=== PATIENT | female | born 1985 | race Caucasian/White ===

== ENCOUNTER 2016-06-03 20:13 | Emergency (ER) | payer MEDICAID ==
[2016-06-03] MEDS ORDERED: NORMAL SALINE 1,000 ML IV ONE (21:54)
--- NOTE | 2016-06-03 21:55 | ERNOTE ---
ER Female HPI Stated Complaint: URINARY PROBLEM Presenting Symptoms: dysuria, other - flank pain Time Seen by Provider: 06/03/16 21:47 Source: patient Exam Limitations: no limitations Immunizations: IMMUNIZATION HX Immunizations Up to Date Yes History of Influenza Vaccine Yes Hx Pneumococcal Vaccination No Allergies/Adverse Reactions: Allergies ketorolac tromethamine [From Toradol] Allergy (Intermediate, Verified 06/03/16 20:38) Other tramadol Allergy (Intermediate, Verified 06/03/16 20:38) Other hydrocodone Allergy (Verified 06/03/16 20:38) Shaking, projectile vomiting, racing heart, shortness of breath hydrocodone bitartrate [From Vicodin] Allergy (Verified 06/03/16 20:38) Home Medications: HOME MEDICATIONS Venlafaxine HCl [Effexor Xr] 150 mg PO DAILY 12/13/15 [Last Taken Unknown] Ciprofloxacin HCl [Cipro] 500 mg PO BID #20 tab 02/24/16 [Last Taken Unknown] Ondansetron [Zofran Odt] 4 mg PO Q6H PRN #20 tab 02/24/16 [Last Taken Unknown] metroNIDAZOLE [Flagyl] 500 mg PO Q12H #14 tab 02/24/16 [Last Taken Unknown] oxyCODONE HCL/ACETAMINOPHEN [Percocet 5 MG/325 MG] 1 tab PO Q6H #25 tablet 02/23 [Last Taken Unknown] Sulfamethoxazole/Trimethoprim [Bactrim Ds] 1 tab PO BID #20 tab 06/04/16 [Last Taken Unknown] - History of Present Illness Narrative: Pt had onset of lower abdominal pain and flank pain that started 3 days ago and has worsened. today she has n/v and unable to hold anything down Timing: Present: getting worse Quality: Present: moderate, severe, aching Onset Location: Present: right flank, left flank Radiation: Present: none Activities at Onset: Present: none Prior Abdominal Problems: Present: none Review of Systems - Review of Systems Constitutional: Present: fever, chills, fatigue EYE: Present: no symptoms reported ENT: Present: no symptoms reported Respiratory: Absent: shortness of breath Cardiology: Absent: chest pain Gastrointestinal/Abdominal: Present: nausea, vomiting. Absent: diarrhea Genitourinary: Present: pain, dysuria, decreased urinary output Musculoskeletal: Present: back pain Skin: Absent: rash Neurological: Present: no symptoms reported Endocrine: Present: no symptoms reported Hematologic/Lymphatic: Present: no symptoms reported Psych: Present: no symptoms reported - Patient's Past Medical History Patient History - Medical: Bipolar, GERD, Hypothyroidism, Other Patient History - Cardiac/Respiratory: No pertinent hx Patient History - Cancer: No Hx of Cancer Patient History - Surgical Procedures: Appendectomy, Cholecystectomy, , Tubal Ligation - Family History mom Family History - Medical: No pertinent hx Family History - Cardiac/Respiratory: Myocardial Infarction dad Family History - Medical: No pertinent hx, Diabetes Type 2, Hypothyroidism Family History - Cardiac/Respiratory: Coronary Heart Disease, Peripheral Vascular Disease - Social History Living Situations: home Does anyone smoke in the home?: Yes Smoking Status: Former smoker Have you smoked in the past 12 months: No Do you dip or chew tobacco: No Patient requests Smoking Cessation Consult: No Initiate information on Smoking Cessation: No Alcohol Use: rarely Drug Use: none Physical Exam - Physical Exam General Appearance: Present: wd/wn, alert, mild distress Neck: Present: normal inspection, nontender Respiratory: Present: no respiratory distress, no accessory muscle use Gastrointestinal/Abdominal: Present: tenderness - suprapubic Back Exam: Present: CVA tenderness (R), CVA tenderness (L) Extremity Exam: Present: normal inspection, non-tender Neurological Exam: Present: oriented, normal mood/affect, no motor/sensory deficits, other - sleeping but awakes with minimal verbal stimuli Skin Exam: Present: normal color, warm/dry Lymphatic Exam: Present: no adenopathy ED Progress - Results and Orders Patient's Lab Results:: I have reviewed the patient's lab results. Results and Orders: Laboratory Tests 06/03/16 06/03/16 06/03/16 22:00 22:00 23:15 WBC 9.3 Hgb 10.3 L Hct 32.5 L Plt Count 235 Sodium 140 Potassium 4.1 Chloride 104 Random Glucose 100 Calcium 8.6 Total Bilirubin 0.2 AST 11 ALT 27 Alkaline Phosphatase 98 Total Protein 7.0 Albumin 3.4 Urine Color Yellow Urine Appearance Slightly cloudy Urine pH 7.0 Ur Specific [place] 1.025 Urine Protein Negative Urine Glucose (UA) Negative Urine Ketones Negative Urine Blood 25 H Urine Nitrate Positive H Urine Bilirubin Negative Urine Urobilinogen Normal Ur Leukocyte Esterase 25 H Urine RBC None seen Urine WBC 5-10 H Ur Epithelial Cells 5-10 H Calcium Oxalate Crystal Few - 1+ H Urine Bacteria 4+ H Urine Culture Comments Culture to follow - Vital Signs Patient's Vital Signs:: I have reviewed the patient's vital signs. Vital Signs: Vital Signs 06/03/16 20:33 Temperature 36.5 C Pulse Rate 99 Respiratory 20 Rate Blood Pressure 129/72 O2 Sat by Pulse 97 Oximetry - Progress/Reassessment Chief Complaint: Genitourinary Problem Departure Clinical Impression: Urinary tract infection Qualifiers: Urinary tract infection type: acute cystitis Hematuria presence: with hematuria Qualified Code(s): N30.01 - Acute cystitis with hematuria - Departure Disposition: Home self-care Condition: Good Instructions: Urinary Tract Infection, Adult, [id number] Prescriptions: Sulfamethoxazole/Trimethoprim [Bactrim Ds] 1 tab PO BID #20 tab
[2016-06-03 22:17] LABS: Hematocrit 32.5 % (37.0-47.0); Hemoglobin 10.3 gm/dL (12.5-16.0); Mean Cell Volume 80.6 fl (78-100); Mean Corpuscular Hemoglobin 25.6 pg (27-31); Mean Corpuscular Hgb Conc 31.7 g/dl (32-36); Mean Platelet Volume 11.7 fl (6.0-9.5); Neutrophil % 57.6 % (42-75.0); Platelet Count 235 K/mm3 (150-450); Red Blood Count 4.03 M/mm3 (4.2-5.4); Red Cell Distribution Width 15.6 % (11.5-14.0); White Blood Count 9.3 K/mm3 (4.0-10.5)
[2016-06-03 22:18] LABS: Neutrophil # 5.4 K/mm3 (1.3-6.0)
[2016-06-03 22:22] LABS: Albumin * 3.4 gm/dl (3.4-5.0); Anion Gap 13.7 mmol/L (6.8-13.8); BUN/Creatinine Ratio 9.3 (9.0-21.6); Bilirubin, Total 0.2 mg/dL (0.0-1.1); Ca. Corrected For Albumin 8.8 mg/dL (8.4-10.2); Calcium * 8.6 mg/dL (7.9-10.9); Carbon Dioxide 26.4 mmol/L (24-32.6); Potassium 4.1 mmol/L (3.4-4.6)
[2016-06-03 23:54] LABS: Urine Bilirubin Negative (NEGATIVE); Urine Blood 25 /ul (NEGATIVE); Urine Ketone Negative (NEGATIVE); Urine Protein Negative (NEGATIVE); Urine Specific Gravity 1.025 SP.GR. (1.005-1.010); Urine Urobilinogen Normal (NORMAL)
[2016-06-04 00:03] LABS: Urine Appearance Slightly Cloudy; Urine Bacteria 4+; Urine Color Yellow; Urine Nitrite Positive (NEGATIVE); Urine RBC None Seen /hpf (0-5)
[2016-06-04] MEDS ORDERED: SULFAMETHOXAZOLE/TRIMETHOPRIM 1 TAB TABLET PO ONE (00:25)
[2016-06-04] MEDS ORDERED: SULFAMETHOXAZOLE/TRIMETHOPRIM 1 TAB TABLET ONE (00:29)
[2016-06-04 00:42] VITALS: BP 99/65
== END 2016-06-04 00:40 | disposition home or self-care (01) ==
LOC: ER 20:13
PROC: BT40ZZZ Ultrasonography of Bladder (ICD-10-PCS; principal; 2016-06-03)
DX: N30.01 Acute cystitis with hematuria (principal); Z87.891 Personal history of nicotine dependence

== ENCOUNTER 2016-06-25 11:10 | Emergency (ER) | payer MEDICAID ==
--- OUTSIDE RECORDS SUMMARY | 2016-06-25 11:23 | XMS REPORT | Continuity of Care Document ---
:1985 Author Organization [facility] ([facility]) Address [place] [address] Phone [phone] Care Team Providers Name Role Phone Kash Saini Primary Care Provider [phone] Source Comments This disclosure is being made pursuant to the Care Everywhere program, applicable federal and state laws, and may not contain all informaitonavailable regarding this patient.[facility] ([facility]) Active Allergies and Adverse Reactions Allergen Noted Date Severity Reactions Comments Hydrocodone 02/25/2016 Angioedema Ketorolac 02/25/2016 Nausea & Vomiting Tramadol 02/25/2016 Nausea & Vomiting Current Medications Prescription Sig. Disp. Refills Start Date End Date Status nitrofurantoin Take 1 Cap by 40 Cap 0 02/01/2010 Active macrocrystal mouth 4 times (MACRODANTIN) 100 mg daily. capsule Indications: UTI SUMAtriptan (IMITREX) 50 Take 0.5 Tabs by 30 Tab 1 04/27/2010 Active mg tablet mouth once when needed. Indications: Migraine venlafaxine 75 mg XR Take 175 mg by Active tablet mouth daily. LORazepam 0.5 mg tablet Take 0.5 mg by Active mouth 2 times daily as needed. Active Problems Problem Noted Date H/O: 04/27/2010 Currently Estimated Date of Delivery Comments Yes Social History Tobacco Use Types Packs/Day Years Used Date Current Every Day Smoker Cigarettes 0.5 4 Alcohol Use Drinks/Week oz/Week Comments No Last Filed Vital Signs Vital Sign Reading Time Taken Blood Pressure 118/54 02/25/2016 10:39 PM CDT Pulse 80 02/25/2016 10:39 PM CDT Temperature 36.3 C (97.3 F) 02/25/2016 10:39 PM CDT Respiratory Rate 18 02/25/2016 10:39 PM CDT Height 1.6 m (5' 3") 02/01/2010 7:30 PM CDT Weight 99.791 kg (220 lb) 02/01/2010 7:30 PM CDT Body Mass Index 38.98 02/01/2010 7:30 PM CDT Oxygen Saturation 99% 02/25/2016 10:39 PM CDT Plan of Care Health Maintenance Due Date Last Done Comments Hepatitis B Vaccine (1 of 3 - Primary Series) 1985 Tdap Vaccine 1997 Lipid Disorder Screening 2004 MMR Vaccine 2004 Td Vaccine 2004 Varicella Vaccine (1 of 2 - Adult - No Evidence of 2004 Immunity) Pneumococcal Vaccine (1 of 1 - PPSV23) 2005 Influenza Vaccine: Seasonal (#1) 12/11/2015 Cervical Cancer Screening 2016 Results from Last 3 Months Not on file
--- OUTSIDE RECORDS SUMMARY | 2016-06-25 11:23 | XMS REPORT | Continuity of Care Document ---
:1985 Author Organization [facility] [place] [address] Care Team Providers Name Role Phone Chris Saini Primary Care Provider [phone] Source Comments This disclosure is being made pursuant to the [employer] program and maynot contain all information available regarding this patient.[facility] Active Allergies and Adverse Reactions Allergen Noted Date Severity Reactions Comments Hydrocodone 12/15/2015 High Shortness Of Breath Toradol 12/15/2015 High Shortness Of Breath Tramadol 12/15/2015 High Shortness Of Breath Current Medications Be aware that medications may not be up to date as of this document. Alwaysverify current medications with the patient. Prescription Sig. Disp. Refills Start Date End Date Status prochlorperazine Take 1 tablet 10 tablet 0 12/16/2015 Active (COMPAZINE) 10 MG tablet by mouth every 6 (six) hours as needed for Nausea. morphine (MORPHINE Take 15 mg by Active SULFATE IR) 15 MG mouth every 4 immediate release tablet (four) hours as needed for Pain. Active Problems Problem Noted Date Right wrist sprain 01/03/2016 Most Recent Encounters Date Type Specialty Providers Description 04/25/2016 Data Import Social History Tobacco Use Types Packs/Day Years Used Date Current Every Day Smoker Smokeless Tobacco: Never Used Alcohol Use Drinks/Week oz/Week Comments Yes 0 Standard drinks or equivalent 0.0 social Last Filed Vital Signs Vital Sign Reading Time Taken Blood Pressure 122/68 01/01/2016 9:40 AM CDT Pulse 65 12/16/2015 1:00 AM CDT Temperature 37.2 C (99 F) 12/15/2015 9:12 PM CDT Respiratory Rate 16 12/16/2015 1:00 AM CDT Height 1.638 m (5' 4.5") 01/01/2016 9:40 AM CDT Weight 105.915 kg (233 lb 8 oz) 01/01/2016 9:40 AM CDT Body Mass Index 39.48 01/01/2016 9:40 AM CDT Oxygen Saturation 92% 12/16/2015 1:00 AM CDT Plan of Care Health Maintenance Due Date Last Done Comments Pneumococcal Medium Risk 19-64 yo (1 of 1 - PPSV23) 2005 Tetanus/Pertussis (1 - Tdap) 2005 Pap Smear 2007 Influenza Immunization (#1) 2016 Results from Last 3 Months Not on file
--- NOTE | 2016-06-25 11:38 | ERNOTE ---
Chest Pain/Cardiac HPI Time Seen by Provider: 06/25/16 11:17 Source: patient, family Exam Limitations: no limitations Immunizations: IMMUNIZATION HX Immunizations Up to Date Yes History of Influenza Vaccine Yes Hx Pneumococcal Vaccination No Allergies/Adverse Reactions: Allergies ketorolac tromethamine [From Toradol] Allergy (Intermediate, Verified 06/25/16 11:30) Other Back pain and hesitancy of urine. tramadol Allergy (Intermediate, Verified 06/25/16 11:30) Other Back pain and hesitancy of urine. hydrocodone Allergy (Verified 06/03/16 20:38) Shaking, projectile vomiting, racing heart, shortness of breath hydrocodone bitartrate [From Vicodin] Allergy (Verified 06/03/16 20:38) Home Medications: HOME MEDICATIONS Venlafaxine HCl [Effexor Xr] 175 mg PO DAILY 12/13/15 [Last Taken Unknown] QUEtiapine FUMARATE [Seroquel] 100 mg PO DAILY 06/25/16 [Last Taken Unknown] Narrative: Patient started to have intermittent chest pain four days ago. the pain is midsternal and stabbing, usually last 5 minutes, symptoms got worse today so she came to the ER. After some discussion patient admits that she has been smoking meth for about four months. Four days ago she ingested 2g in one dose, denies any suicidal ideation,just wanted to get high. She possibly had two seizures two days ago and has been sleeping a lot but did not want to be taken to the ER until today. She has a history of bipolar and borderline personality disorder, is on medication She denies any other substance abuse Date (Duration): 06/21/16 Review of Systems - Review of Systems Constitutional: Present: fatigue, malaise. Absent: recent illness ENT: Absent: sore throat Respiratory: Absent: shortness of breath, cough Cardiology: Present: See HPI, chest pain Gastrointestinal/Abdominal: Absent: nausea, vomiting, diarrhea, abdominal pain Genitourinary: Present: no symptoms reported Musculoskeletal: Absent: muscle pain Neurological: Absent: headache - Patient's Past Medical History Patient History - Medical: Bipolar, GERD, Hypothyroidism, Other Patient History - Cardiac/Respiratory: No pertinent hx Patient History - Cancer: No Hx of Cancer Patient History - Surgical Procedures: Appendectomy, Cholecystectomy, , Tubal Ligation Patient History - Other: None LMP (Calendar): 09/25/15 - Family History mom Family History - Medical: No pertinent hx Family History - Cardiac/Respiratory: Myocardial Infarction dad Family History - Medical: No pertinent hx, Diabetes Type 2, Hypothyroidism Family History - Cardiac/Respiratory: Coronary Heart Disease, Peripheral Vascular Disease - Social History Living Situations: home Abuse History: No History of abuse Psych History: Hx of Bipolar Disorder Does anyone smoke in the home?: Yes Alcohol Use: rarely Drug Use: none - Immunizations Immunizations Up to Date: Yes Hx Pneumococcal Vaccination: No History of Influenza Vaccine: Yes Physical Exam - Physical Exam General Appearance: Present: wd/wn, alert, no apparent distress, anxious Eye Exam: Normal inspection: bilateral, PERRL: bilateral Ears, Nose, Throat: Present: normal ENT inspection, normal pharynx Neck: Present: normal inspection, nontender Respiratory: Present: no respiratory distress, normal breath sounds, no accessory muscle use, lungs clear, chest tenderness - mild anteriorly Cardiovascular/Chest: Present: regular rate, rhythm, no murmur Gastrointestinal/Abdominal: Present: normal bowel sounds, nontender, nondistended, soft Extremity Exam: Present: no edema Neurological Exam: Present: alert, oriented, normal mood/affect, no motor/ sensory deficits Skin Exam: Present: normal color, warm/dry ED Progress - Results and Orders Patient's Lab Results:: I have reviewed the patient's lab results. - Vital Signs Patient's Vital Signs:: I have reviewed the patient's vital signs. - EKG EKG: NSR, RBBB - incomplete, other - no prior, no acute changes EKG read: Interp. by me - X-Ray X-Ray #1 X-Ray: chest - no acute changes Interpretation: Reviewed by me - Progress/Reassessment Progress Note-Subjective: 06/25/16 13:10 patient feeling much better after GI cocktail discussed test results Departure - Departure Clinical Impression: GERD (gastroesophageal reflux disease) Qualifiers: Esophagitis presence: esophagitis presence not specified Qualified Code(s): K21.9 - Gastro-esophageal reflux disease without esophagitis Disposition: Home self-care Condition: Good Instructions: Heartburn, [id number] Additional Instructions: take over the counter pepcid or zantac follow up for rehab as scheduled in two weeks Referrals: Jensen Nunez MD [Staff Physician] -
[2016-06-25 11:55] LABS: Hematocrit 32.7 % (37.0-47.0); Hemoglobin 10.2 gm/dL (12.5-16.0); Mean Cell Volume 79.8 fl (78-100); Mean Corpuscular Hemoglobin 24.9 pg (27-31); Mean Corpuscular Hgb Conc 31.2 g/dl (32-36); Mean Platelet Volume 11.2 fl (6.0-9.5); Neutrophil # 5.1 K/mm3 (1.3-6.0); Neutrophil % 64.2 % (42-75.0); Platelet Count 258 K/mm3 (150-450); Red Cell Distribution Width 15.1 % (11.5-14.0)
[2016-06-25 12:13] LABS: ALT 26 U/L (19-67); AST 17 U/L (0-48); Alkaline Phosphatase * 92 U/L (50-170); Anion Gap 10.1 mmol/L (6.8-13.8); Bilirubin, Total 0.2 mg/dL (0.0-1.1); Blood Urea Nitrogen 5 mg/dL (3-23); Ca. Corrected For Albumin 9.2 mg/dL (8.4-10.2); Calcium * 8.7 mg/dL (7.9-10.9); Carbon Dioxide 26.3 mmol/L (24-32.6); Chloride 106 mmol/L (97-106); Glucose * 98 mg/dL (70-110); Potassium 4.4 mmol/L (3.4-4.6); Salicylate Less than 2.8 mg/dL (2.8-20.0); Sodium 138 mmol/L (132-142); Total Protein 7.3 gm/dL (6.2-8.2); Troponin I Less than 0.017 ng/ml (0.00-0.10)
[2016-06-25] MEDS ORDERED: SUCRALFATE 1 G/10 ML UDC PO ONE (12:40)
[2016-06-25] MEDS ORDERED: MAG HYDROX/ALUMINUM HYD/SIMETH 30 ML UDC PO ONE (12:40)
[2016-06-25] MEDS ORDERED: LIDOCAINE HCL 20 ML UDC PO ONE (12:40)
[2016-06-25 13:03] LABS: Cocaine Ur Negative (NEGATIVE); Urine Barbiturate Negative (NEGATIVE); Urine Benzodiazepines Negative (NEGATIVE); Urine Opiates Negative (NEGATIVE); Urine PCP Negative (NEGATIVE); Urine THC Negative (NEGATIVE)
[2016-06-25 13:17] VITALS: BP 116/74
== END 2016-06-25 13:18 | disposition home or self-care (01) ==
LOC: ER 11:10
DX: K21.9 Gastro-esophageal reflux disease without esophagitis (principal); F31.70 Bipolar disorder, currently in remission, most recent episode unspecified; F60.3 Borderline personality disorder; Z77.22 Contact with and (suspected) exposure to environmental tobacco smoke (acute) (chronic)
CPT/HCPCS: 36415; 71020; 80053; 80307; 84484; 85025; 93005; 99283; G0480; G0481

== ENCOUNTER 2016-07-02 10:23 | Emergency (ER) | payer MEDICAID ==
[2016-07-02] MEDS ORDERED: HYDROmorphone HCL 1 MG/ML DISP.SYRIN IV ONE ×2 (11:48→12:57)
[2016-07-02] MEDS ORDERED: ONDANSETRON HCL/PF 2 MG/ML VIAL IV ONE ×2 (11:48→12:57)
[2016-07-02] MEDS ORDERED: HYDROmorphone HCL 2 MG/ML VIAL ONE (11:57)
[2016-07-02] MEDS ORDERED: ONDANSETRON HCL/PF 2 MG/ML VIAL ONE ×2 (11:57→12:59)
--- NOTE | 2016-07-02 12:06 | ERNOTE ---
Abdominal HPI - General Chief Complaint: Abdominal Pain Time Seen by Provider: 07/02/16 11:39 Source: patient, family Exam Limitations: no limitations - Immun/Allergies/Home Medications Immunizatons: IMMUNIZATION HX Immunizations Up to Date Yes History of Influenza Vaccine No Hx Pneumococcal Vaccination No Allergies/Adverse Reactions: Allergies ketorolac tromethamine [From Toradol] Allergy (Intermediate, Verified 06/25/16 11:30) Other Back pain and hesitancy of urine. tramadol Allergy (Intermediate, Verified 06/25/16 11:30) Other Back pain and hesitancy of urine. hydrocodone Allergy (Verified 06/03/16 20:38) Shaking, projectile vomiting, racing heart, shortness of breath hydrocodone bitartrate [From Vicodin] Allergy (Verified 06/03/16 20:38) Home Medications: HOME MEDICATIONS Venlafaxine HCl [Effexor Xr] 175 mg PO DAILY 12/13/15 [Last Taken Unknown] QUEtiapine FUMARATE [Seroquel] 100 mg PO DAILY 06/25/16 [Last Taken Unknown] Hydromorphone HCl [Dilaudid] 2 mg PO Q4H PRN #20 tablet 07/02/16 [Last Taken Unknown] Promethazine HCl [Phenergan Suppository] 25 mg RC Q6H PRN #20 supp.rect [Last Taken Unknown] - History of Present Illness Narrative: Patient started with left lower abdominal pain two days ago. The pain started suddenly while she was laying on the couch, has been waxing and waning but not resolved. 'it feels like someone is reaching through my vagina and is pulling my left ovary out' She had her tubes tied and after six months of pain issues had her tubes resected in January 2016. 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 Pain resolved after that surgery and did not recur until now. The pain has caused nausea and vomiting. She denies any diarrhea, no vaginal discharge. Her periods have been regular over the last six months the beginning of the month. She is currently recovering from drug use, is scheduled to go to rehab in [place] 07/08 Date (Duration): 06/30/16 Time (Timing): 15:00 Timing: constant Quality: severe, sharpness Activities at Onset: none Associated Symptoms: Present: nausea, vomiting. Absent: chest pain, diarrhea- gross blood, fever/chills, shortness of breath Prior Abdominal Problems: Present: similar symptoms Prior Treatment: Present: recently seen. Absent: currently on antibiotics Review of Systems - Review of Systems Constitutional: Absent: fever, chills ENT: Absent: nose congestion, sore throat Respiratory: Absent: shortness of breath, cough Cardiology: Absent: chest pain Gastrointestinal/Abdominal: Present: See HPI, nausea, vomiting. Absent: diarrhea Genitourinary: Present: no symptoms reported. Absent: frequency, dysuria Skin: Absent: rash Neurological: Absent: headache Psych: Present: no symptoms reported - Patient's Past Medical History Patient History - Medical: Anxiety, Bipolar, Depression, GERD, Hypothyroidism, Obesity, UTI'S, Other Patient History - Cardiac/Respiratory: No pertinent hx Patient History - Cancer: No Hx of Cancer Patient History - Surgical Procedures: Appendectomy, Cholecystectomy, , Tubal Ligation Patient History - Other: None LMP (Calendar): 06/12/16 - Family History mom Family History - Medical: No pertinent hx Family History - Cardiac/Respiratory: Myocardial Infarction dad Family History - Medical: No pertinent hx, Diabetes Type 2, Hypothyroidism Family History - Cardiac/Respiratory: Coronary Heart Disease, Peripheral Vascular Disease - Social History Living Situations: spouse Abuse History: No History of abuse Psych History: Hx of Anxiety, Hx of Depression, Hx of Bipolar Disorder Does anyone smoke in the home?: Yes Smoking Status: Current every day smoker Cigarettes Packs Per Day: 0.2 Have you smoked in the past 12 months: Yes Do you dip or chew tobacco: No Patient requests Smoking Cessation Consult: No Initiate information on Smoking Cessation: No Alcohol Use: rarely Drug Use: none - Immunizations Immunizations Up to Date: Yes Hx Pneumococcal Vaccination: No History of Influenza Vaccine: No Physical Exam - Physical Exam General Appearance: Present: wd/wn, alert, moderate distress, obese Respiratory: Present: no respiratory distress, normal breath sounds, no accessory muscle use, lungs clear Cardiovascular/Chest: Present: regular rate, rhythm, no murmur Gastrointestinal/Abdominal: Present: normal bowel sounds, nondistended, soft, tenderness - left lower abdomen Neurological Exam: Present: alert, oriented, normal mood/affect Skin Exam: Present: normal color, warm/dry ED Progress - Vital Signs Patient's Vital Signs:: I have reviewed the patient's vital signs. Vital Signs: Vital Signs 07/02/16 07/02/16 10:43 10:58 Temperature 36.2 C L 36.2 C L Pulse Rate 90 90 Respiratory 16 16 Rate Blood Pressure 127/79 127/79 O2 Sat by Pulse 97 97 Oximetry - Progress/Reassessment Chief Complaint: Abdominal Pain Progress Note-Subjective: 07/02/16 12:57 patient reports that her pain was better until she had the transvaginal ultrasound, no significant relieve of the nausea 07/02/16 13:13 discussed results with patient and family, left ovary bigger but not obvious cyst, discussed need to follow up on endometrial polyp as she had multiple interventions by her small wind energy installer in [place] she will follow up him Departure - Departure Clinical Impression: Pelvic pain Disposition: Home self-care Condition: Good Instructions: Pelvic Pain, Female, [id number] Additional Instructions: follow up with your small wind energy installer [facility] Referrals: [Primary Care Provider] - Prescriptions: Hydromorphone HCl [Dilaudid] 2 mg PO Q4H PRN #20 tablet PRN Reason: Pain Promethazine HCl [Phenergan Suppository] 25 mg RC Q6H PRN #20 supp.rect PRN Reason: Nausea
--- OUTSIDE RECORDS SUMMARY | 2016-07-02 12:14 | XMS REPORT | Continuity of Care Document ---
:1985 Author Organization [facility] ([facility]) [place] [address] Phone [phone] Care Team Providers Name Role Phone Kash Saini Primary Care Provider [phone] Source Comments This disclosure is being made pursuant to the Care Everywhere program, applicable federal and state laws, and may not contain all informaitonavailable regarding this patient.[facility] ([facility]) Active Allergies and Adverse Reactions Allergen [...]
--- OUTSIDE RECORDS SUMMARY | 2016-07-02 12:14 | XMS REPORT | Continuity of Care Document ---
:1985 Author Organization [facility] [place] [address] Care Team Providers Name Role Phone Chris Saini Primary Care Provider [phone] Source Comments This disclosure is being made pursuant to the [employer] program and maynot contain all information available regarding this patient.[facility] Active Allergies and Adverse Reactions Allergen Noted [...]
[2016-07-02] MEDS ORDERED: HYDROmorphone HCL 1 MG/ML DISP.SYRIN ONE (12:59)
[2016-07-02 13:44] VITALS: BP 146/54
== END 2016-07-02 13:54 | disposition home or self-care (01) ==
LOC: SUPCPDRO 10:23 → ER 10:23
DX: R10.2 Pelvic and perineal pain (principal); F17.210 Nicotine dependence, cigarettes, uncomplicated; F31.9 Bipolar disorder, unspecified; F41.9 Anxiety disorder, unspecified

== ENCOUNTER 2016-07-18 13:15 | Emergency (ER) | payer MEDICAID ==
[2016-07-18 13:28] VITALS: BP 109/63
[2016-07-18] MEDS ORDERED: ACETAMINOPHEN 500 MG TABLET PO ONE (13:53)
--- OUTSIDE RECORDS SUMMARY | 2016-07-18 13:54 | XMS REPORT | Continuity of Care Document ---
:1985 Author Organization [facility] [place] [address] Care Team Providers Name Role Phone Chris Saini Primary Care Provider [phone] Source Comments This disclosure is being made pursuant to the [employer] program and maynot contain all information available regarding this patient.[facility] Active Allergies and Adverse Reactions Allergen Noted [...]
--- OUTSIDE RECORDS SUMMARY | 2016-07-18 13:55 | XMS REPORT | Continuity of Care Document ---
:1985 Author Organization [facility] ([facility]) Address [place] [address] Phone [phone] Care Team Providers Name Role Phone Kash Saini Primary Care Provider [phone] Source Comments This disclosure is being made pursuant to the Care Everywhere program, applicable federal and state laws, and may not contain all informaitonavailable regarding this patient.[facility] ([facility]) Active Allergies and Adverse Reactions Allergen Noted [...]
--- NOTE | 2016-07-18 14:14 | ERNOTE ---
Abdominal HPI - Narrative Date of Service: 07/18/16 - General Chief Complaint: Abdominal Pain Time Seen by Provider: 07/18/16 13:50 Source: patient, family - Immun/Allergies/Home Medications Immunizatons: IMMUNIZATION HX Immunizations Up to Date Yes History of Influenza Vaccine No Hx Pneumococcal Vaccination No Allergies/Adverse Reactions: Allergies hydrocodone bitartrate [From Vicodin] Allergy (Intermediate, Verified 07/18/16 13:29) projectile vomiting, dyspnea ketorolac tromethamine [From Toradol] Adverse Reaction (Intermediate, Verified 07/18/16 13:29) back pain, hesitancy of urine tramadol Adverse Reaction (Intermediate, Verified 07/18/16 13:29) back pain, hesitancy of urine Home Medications: HOME MEDICATIONS Venlafaxine HCl [Effexor Xr] 175 mg PO DAILY 12/13/15 [Last Taken Unknown] QUEtiapine FUMARATE [Seroquel] 100 mg PO DAILY 06/25/16 [Last Taken Unknown] Hydromorphone HCl [Dilaudid] 2 mg PO Q4H PRN #20 tablet 07/02/16 [Last Taken Unknown] Promethazine HCl [Phenergan Suppository] 25 mg RC Q6H PRN #20 supp.rect [Last Taken Unknown] - History of Present Illness Timing: constant Quality: severe Comment: Patient presents again to the ER with chronic left lower quadrant abdominal pain. She has had literally dozens of ER visits for the same pain usually requesting Dilaudid when she gets here. Review of Systems - Review of Systems Constitutional: Present: See HPI EYE: Present: no symptoms reported ENT: Present: no symptoms reported Respiratory: Present: no symptoms reported Cardiology: Present: no symptoms reported Gastrointestinal/Abdominal: Present: See HPI Genitourinary: Present: no symptoms reported Musculoskeletal: Present: no symptoms reported Skin: Present: no symptoms reported Neurological: Present: no symptoms reported Endocrine: Present: no symptoms reported Hematologic/Lymphatic: Present: no symptoms reported Psych: Present: no symptoms reported - Patient's Past Medical History Patient History - Medical: Anxiety, Bipolar, Depression, GERD, Hypothyroidism, Obesity, UTI'S, Other Patient History - Cardiac/Respiratory: No pertinent hx Patient History - Cancer: No Hx of Cancer Patient History - Surgical Procedures: Appendectomy, Cholecystectomy, , Tubal Ligation Patient History - Other: None LMP (Calendar): 06/12/16 - Family History Grandmother-Paternal Family History - Medical: , History Unknown Family History - Cardiac/Respiratory: History Unknown Family History - Cancer: No pertinent family hx mom Family History - Medical: No pertinent hx Family History - Cardiac/Respiratory: Myocardial Infarction Family History - Cancer: No pertinent family hx dad Family History - Medical: Diabetes Type 2, Hypothyroidism Family History - Cardiac/Respiratory: Coronary Heart Disease, Peripheral Vascular Disease Family History - Cancer: No pertinent family hx - Social History Living Situations: spouse Abuse History: No History of abuse Psych History: Hx of Anxiety, Hx of Depression, Hx of Bipolar Disorder, Current tx/ever been on anti-depressants or anti-anxiety meds Does anyone smoke in the home?: Yes Smoking Status: Former smoker Alcohol Use: rarely Drug Use: none - Immunizations Immunizations Up to Date: Yes Hx Pneumococcal Vaccination: No History of Influenza Vaccine: No Physical Exam - Physical Exam General Appearance: Present: wd/wn, alert, severe distress Eye Exam: Normal inspection: bilateral, PERRL: bilateral Ears, Nose, Throat: Present: normal ENT inspection, H, normal pharynx Neck: Present: normal inspection, nontender Respiratory: Present: no respiratory distress, normal breath sounds, no accessory muscle use, chest nontender, lungs clear Cardiovascular/Chest: Present: regular rate, rhythm, no murmur, normal peripheral pulses Gastrointestinal/Abdominal: Present: normal bowel sounds, nondistended, soft, no organomegaly, tenderness Rectal Exam: Present: deferred Back Exam: Present: normal inspection, normal range of motion Extremity Exam: Present: normal inspection, non-tender, no edema, normal range of motion Neurological Exam: Present: alert, oriented, normal mood/affect Skin Exam: Present: normal color, warm/dry Lymphatic Exam: Present: no adenopathy ED Progress - Vital Signs Patient's Vital Signs:: I have reviewed the patient's vital signs. Vital Signs: Vital Signs 07/18/16 13:19 Temperature 35.9 C L Pulse Rate 91 Respiratory 20 Rate Blood Pressure 109/63 O2 Sat by Pulse 99 Oximetry - Progress/Reassessment Chief Complaint: Abdominal Pain Progress:: Unchanged Progress Note-Subjective: 07/18/16 14:10 She was offered 1 g of Tylenol and abdominal pelvic ultrasound to make sure there was no ovarian torsion or ovarian cyst that was present. Patient declined feeling that she needed to have Dilaudid to control this pain and did not see the point in getting a pelvic ultrasound and they signed out AMA. - Transfer of Care Expected Disposition: Discharge Departure - Departure Clinical Impression: Chronic abdominal pain Disposition: Against medical advice Condition: Good
== END 2016-07-18 14:05 | disposition left against medical advice (07) ==
LOC: ER 13:15
DX: R10.9 Unspecified abdominal pain (principal); Z57.31 Occupational exposure to environmental tobacco smoke; F41.8 Other specified anxiety disorders; F31.9 Bipolar disorder, unspecified

== ENCOUNTER 2016-11-21 15:43 | Emergency (ER) | payer MEDICAID ==
[2016-11-21] MEDS ORDERED: oxyCODONE HCL/ACETAMINOPHEN 1 TAB TABLET PO ONE (17:03)
--- OUTSIDE RECORDS SUMMARY | 2016-11-21 17:04 | XMS REPORT | Continuity of Care Document ---
:1985 Author Organization [facility] [place] [address] Care Team Providers Name Role Phone Chris Saini Primary Care Provider [phone] Source Comments This disclosure is being made pursuant to the [employer] [place] program and maynot contain all information available regarding this patient.[facility] Active Allergies and Adverse Reactions Allergen Noted [...] Problem Noted Date Right wrist sprain 01/03/2016 Social History Tobacco Use Types Packs/Day Years [...] from Last 3 Months Not on file Insurance Payer Benefit Plan / Subscriber ID Type Phone Address Group [place] [id number] Out of State [phone] SHELLEY HENRIQUEZ Personal/Family Self 1985 Home: [address], [facility] [phone] [place] [address]
[2016-11-21] MEDS ORDERED: oxyCODONE HCL/ACETAMINOPHEN 1 TAB TABLET ONE (17:13)
[2016-11-21 18:02] LABS: Urine Bilirubin Negative (NEGATIVE); Urine Blood 25 /ul (NEGATIVE); Urine Ketone Negative (NEGATIVE); Urine Nitrite Negative (NEGATIVE); Urine Protein Negative (NEGATIVE); Urine Specific Gravity 1.025 SP.GR. (1.005-1.010); Urine Urobilinogen Normal (NORMAL)
[2016-11-21] MEDS ORDERED: CYCLOBENZAPRINE HCL 10 MG TABLET PO ONE (18:10)
[2016-11-21 18:11] LABS: Urine Appearance Slightly Cloudy; Urine Bacteria 1+; Urine Color Yellow; Urine RBC 0-5 /hpf (0-5); Urine WBC None Seen /hpf (0-5)
[2016-11-21] MEDS ORDERED: CYCLOBENZAPRINE HCL 10 MG TABLET ONE (18:11)
[2016-11-21 18:13] VITALS: BP 117/75
[2016-11-21 18:15] LABS: Cocaine Ur Negative (NEGATIVE); Urine Barbiturate Negative (NEGATIVE); Urine Benzodiazepines Negative (NEGATIVE); Urine Opiates Negative (NEGATIVE); Urine PCP Negative (NEGATIVE); Urine THC Negative (NEGATIVE)
--- NOTE | 2016-11-21 18:16 | ERNOTE ---
Back Pain ER HPI Date of Service: 11/21/16 Presenting Symptoms: injury/pain to back Time Seen by Provider: 11/21/16 16:55 Source: patient, family, RN notes reviewed Exam Limitations: no limitations Immunizations: IMMUNIZATION HX Immunizations Up to Date Yes History of Influenza Vaccine No Hx Pneumococcal Vaccination No Allergies/Adverse Reactions: Allergies hydrocodone bitartrate [From Vicodin] Allergy (Intermediate, Verified 11/21/16 16:18) projectile vomiting, dyspnea ketorolac tromethamine [From Toradol] Adverse Reaction (Intermediate, Verified 11/21/16 16:18) back pain, hesitancy of urine tramadol Adverse Reaction (Intermediate, Verified 11/21/16 16:18) back pain, hesitancy of urine Home Medications: HOME MEDICATIONS Venlafaxine HCl [Effexor Xr] 175 mg PO DAILY 12/13/15 [Last Taken Unknown] QUEtiapine FUMARATE [Seroquel] 100 mg PO DAILY 06/25/16 [Last Taken Unknown] Cyclobenzaprine HCl [Flexeril] 10 mg PO TID PRN #20 tab 11/21/16 [Last Taken Unknown] Ibuprofen [Motrin] 600 mg PO Q6H PRN #40 tab 11/21/16 [Last Taken Unknown] Narrative: Shelley is a 31 year old female brought to the ED by her for low back pain due to a fall. She fell while wrestling with her children and landed on a toy truck. She has taken ibuprofen without improvement. She had a hysterectomy 3 weeks ago. She had been recovering well. Date (Duration): 11/20/16 Activities at Onset: Reports: activity Recent Injury?: Reports: yes Possible Precipitating Factor: Reports: fall/near fall Associated Symptoms: Reports: difficulty walking. Denies: fever/chills, constipation/incontinence, nausea/vomiting, problems urinating, lightheadedness , numbess/weakness in legs Review of Systems - Review of Systems Constitutional: Absent: recent illness, fever, chills, malaise EYE: Present: no symptoms reported ENT: Present: no symptoms reported Respiratory: Absent: shortness of breath, cough Cardiology: Absent: chest pain, edema Gastrointestinal/Abdominal: Absent: nausea, vomiting, abdominal pain Genitourinary: Absent: dysuria, hematuria Musculoskeletal: Present: back pain. Absent: neck pain, joint pain, joint swelling Skin: Absent: lesions, lumps, change in color Neurological: Absent: weakness, numbness, tingling Endocrine: Present: no symptoms reported Hematologic/Lymphatic: Present: no symptoms reported Psych: Present: no symptoms reported - Patient's Past Medical History Patient History - Medical: Anxiety, Bipolar, Depression, GERD, Hypothyroidism, Obesity, UTI'S, Other Patient History - Cardiac/Respiratory: No pertinent hx Patient History - Cancer: No Hx of Cancer Patient History - Surgical Procedures: Appendectomy, Cholecystectomy, , Hysterectomy, Tubal Ligation Patient History - Other: None LMP (Calendar): 06/12/16 - Family History Grandmother-Paternal Family History - Medical: , History Unknown Family History - Cardiac/Respiratory: History Unknown Family History - Cancer: No pertinent family hx mom Family History - Medical: No pertinent hx Family History - Cardiac/Respiratory: Myocardial Infarction Family History - Cancer: No pertinent family hx dad Family History - Medical: Diabetes Type 2, Hypothyroidism Family History - Cardiac/Respiratory: Coronary Heart Disease, Peripheral Vascular Disease Family History - Cancer: No pertinent family hx - Social History Living Situations: spouse Abuse History: No History of abuse Psych History: Hx of Anxiety, Hx of Depression, Hx of Bipolar Disorder, Current tx/ever been on anti-depressants or anti-anxiety meds Does anyone smoke in the home?: Yes Alcohol Use: none Drug Use: none - Immunizations Immunizations Up to Date: Yes Hx Pneumococcal Vaccination: No History of Influenza Vaccine: No Physical Exam - Physical Exam General Appearance: Present: alert, mild distress, obese Neck: Present: normal inspection, nontender, supple Respiratory: Present: no respiratory distress, normal breath sounds, no accessory muscle use, lungs clear Cardiovascular/Chest: Present: regular rate, rhythm, no murmur, normal peripheral pulses Gastrointestinal/Abdominal: Present: nondistended, soft Back Exam: Present: no CVA tenderness, vertebral tenderness - lower lumbar region, decreased range of motion Extremity Exam: Present: normal inspection, normal range of motion, no edema Neurological Exam: Present: alert, oriented, normal mood/affect, no motor/ sensory deficits, other - normal strength against resistance, dorsiflexes great toes Skin Exam: Present: normal color, warm/dry ED Progress - Vital Signs Patient's Vital Signs:: I have reviewed the patient's vital signs. Vital Signs: Vital Signs 11/21/16 11/21/16 16:14 17:49 Temperature 36.6 C Pulse Rate 99 78 Respiratory 12 18 Rate Blood Pressure 126/94 114/70 O2 Sat by Pulse 97 98 Oximetry - X-Ray X-Ray #1 X-Ray: lumbosacral Interpretation: Interp. by me, Reviewed by me X-ray Comments: No acute osseous abnormalities noted - Progress/Reassessment Chief Complaint: Back Pain Progress:: Improved Departure Clinical Impression: Low back pain Qualifiers: Chronicity: acute Back pain laterality: bilateral Sciatica presence: without sciatica Qualified Code(s): M54.5 - Low back pain Fall at home Qualifiers: Encounter type: initial encounter Qualified Code(s): W19.XXXA - Unspecified fall, initial encounter - Departure Disposition: Home self-care Condition: Stable Instructions: Back Pain, Adult Prescriptions: Cyclobenzaprine HCl [Flexeril] 10 mg PO TID PRN #20 tab PRN Reason: MUSCLE SPASMS Ibuprofen [Motrin] 600 mg PO Q6H PRN #40 tab PRN Reason: Pain
== END 2016-11-21 18:15 | disposition home or self-care (01) ==
LOC: ER 15:43
DX: M54.5 Low back pain (principal); W03.XXXA Other fall on same level due to collision with another person, initial encounter; Y93.72 Activity, wrestling; Y92.009 Unspecified place in unspecified non-institutional (private) residence as the place of occurrence of the external cause

== ENCOUNTER 2016-11-24 20:42 | Emergency (ER) | payer MEDICAID ==
[2016-11-24 21:14] LABS: Cocaine Ur Negative (NEGATIVE); Urine Barbiturate Negative (NEGATIVE); Urine Benzodiazepines Negative (NEGATIVE); Urine Opiates Negative (NEGATIVE); Urine PCP Negative (NEGATIVE); Urine THC Negative (NEGATIVE)
[2016-11-24] MEDS ORDERED: ONDANSETRON 4 MG TAB.RAPDIS PO ONE (21:24)
--- NOTE | 2016-11-24 21:24 | ERNOTE ---
Medical Problem HPI - General Chief Complaint: Nausea/Vomiting Time Seen by Provider: 11/24/16 21:14 Source: patient Exam Limitations: no limitations - Immun/Allergies/Home Medications Immunizations: IMMUNIZATION HX Immunizations Up to Date Yes History of Influenza Vaccine No Hx Pneumococcal Vaccination No Allergies/Adverse Reactions: Allergies hydrocodone bitartrate [From Vicodin] Allergy (Intermediate, Verified 11/24/16 20:52) projectile vomiting, dyspnea ketorolac tromethamine [From Toradol] Adverse Reaction (Intermediate, Verified 11/24/16 20:52) back pain, hesitancy of urine tramadol Adverse Reaction (Intermediate, Verified 11/24/16 20:52) back pain, hesitancy of urine Home Medications: HOME MEDICATIONS Venlafaxine HCl [Effexor Xr] 175 mg PO DAILY 12/13/15 [Last Taken Unknown] QUEtiapine FUMARATE [Seroquel] 100 mg PO DAILY 06/25/16 [Last Taken Unknown] Cyclobenzaprine HCl [Flexeril] 10 mg PO TID PRN #20 tab 11/21/16 [Last Taken Unknown] Ibuprofen [Motrin] 600 mg PO Q6H PRN #40 tab 11/21/16 [Last Taken Unknown] Naproxen [Naprosyn] 500 mg PO BID PRN #20 tablet 11/24/16 [Last Taken Unknown] - History of Present History Narrative: Patient complains of low back pain and pain with urination, "I'm unable to urinate well". She states her low back pain is making her nauseated and that she has vomited. denies any fevers or chills. Review of Systems - Review of Systems Constitutional: Present: no symptoms reported - This patient is very interesting. When I am right next to the patient she is moaning and laying on the left lateral decub. When I leave the room and listen in, pt stops moaning. EYE: Present: no symptoms reported ENT: Present: no symptoms reported Respiratory: Present: no symptoms reported Cardiology: Present: no symptoms reported Gastrointestinal/Abdominal: Present: See HPI Genitourinary: Present: See HPI Musculoskeletal: Present: See HPI Skin: Present: no symptoms reported - Patient's Past Medical History Patient History - Medical: Anxiety, Bipolar, Depression, GERD, Hypothyroidism, Obesity, UTI'S, Other Patient History - Cardiac/Respiratory: No pertinent hx Patient History - Cancer: No Hx of Cancer Patient History - Surgical Procedures: Appendectomy, Cholecystectomy, , Hysterectomy, Tubal Ligation Patient History - Other: None LMP (females 10-50): other LMP (Calendar): 06/12/16 - Family History Grandmother-Paternal Family History - Medical: , History Unknown Family History - Cardiac/Respiratory: History Unknown Family History - Cancer: No pertinent family hx mom Family History - Medical: No pertinent hx Family History - Cardiac/Respiratory: Myocardial Infarction Family History - Cancer: No pertinent family hx dad Family History - Medical: Diabetes Type 2, Hypothyroidism Family History - Cardiac/Respiratory: Coronary Heart Disease, Peripheral Vascular Disease Family History - Cancer: No pertinent family hx - Social History Living Situations: home Abuse History: No History of abuse Psych History: Hx of Anxiety, Hx of Depression, Hx of Bipolar Disorder, Current tx/ever been on anti-depressants or anti-anxiety meds Does anyone smoke in the home?: Yes Alcohol Use: none Drug Use: none - Immunizations Immunizations Up to Date: Yes Hx Pneumococcal Vaccination: No History of Influenza Vaccine: No Physical Exam - Physical Exam General Appearance: Present: wd/wn, alert, no apparent distress Head Exam: Present: normal inspection Respiratory: Present: no respiratory distress, normal breath sounds, no accessory muscle use, chest nontender, lungs clear Cardiovascular/Chest: Present: regular rate, rhythm, no murmur, normal peripheral pulses Gastrointestinal/Abdominal: Present: soft - pt is obese and on exam has no pain in belly, most of her pain is in the low back area Back Exam: Present: normal inspection, other - pt has pain upon palpation of the sacral area. no lesions noted ED Progress - Results and Orders Patient's Lab Results:: I have reviewed the patient's lab results. - Vital Signs Patient's Vital Signs:: I have reviewed the patient's vital signs. Vital Signs: Vital Signs 11/24/16 20:48 Temperature 36.9 C Pulse Rate 106 H Respiratory 16 Rate Blood Pressure 143/112 O2 Sat by Pulse 97 Oximetry - Progress/Reassessment Chief Complaint: Nausea/Vomiting Plan - Plan Plan: pt is orthostatic negative, she had [address] does not show a nephrolithiasis This patient has chronic low back pain. Departure - Departure Clinical Impression: Low back pain Qualifiers: Chronicity: unspecified Back pain laterality: bilateral Sciatica presence: with sciatica Sciatica laterality: sciatica of left side Qualified Code(s): M54.42 - Lumbago with sciatica, left side Disposition: Home self-care Condition: Fair Instructions: Back Pain, Adult, Chronic Pain Additional Instructions: Please find a PCP and follow up with them Prescriptions: Naproxen [Naprosyn] 500 mg PO BID PRN #20 tablet PRN Reason: Pain
--- OUTSIDE RECORDS SUMMARY | 2016-11-24 21:31 | XMS REPORT | Continuity of Care Document ---
:1985 Author Organization [employer] [place] [address] Care Team Providers Name Role Phone Chris Saini Primary Care Provider [phone] Source Comments This disclosure is being made pursuant to the [employer] program and maynot contain all information available regarding this patient.[employer] Active Allergies and Adverse Reactions Allergen Noted [...] Phone Address Group [place] [id number] Out of State [phone] SHELLEY HENRIQUEZ Personal/Family Self 1985 Home: [phone] [place] [address]
[2016-11-24 21:35] LABS: Hematocrit 32.6 % (37.0-47.0); Hemoglobin 10.7 gm/dL (12.5-16.0); Mean Cell Volume 81.5 fl (78-100); Mean Corpuscular Hemoglobin 26.8 pg (27-31); Mean Corpuscular Hgb Conc 32.8 g/dl (32-36); Mean Platelet Volume 11.2 fl (6.0-9.5); Neutrophil # 4.7 K/mm3 (1.3-6.0); Neutrophil % 59.5 % (42-75.0); Platelet Count 283 K/mm3 (150-450); Red Cell Distribution Width 15.4 % (11.5-14.0); White Blood Count 7.9 K/mm3 (4.0-10.5)
[2016-11-24] MEDS ORDERED: ONDANSETRON 4 MG TAB.RAPDIS ONE (21:36)
[2016-11-24 21:45] LABS: Albumin * 3.5 gm/dl (3.4-5.0); Anion Gap 9.7 mmol/L (6.8-13.8); BUN/Creatinine Ratio 11.2 (9.0-21.6); Bilirubin, Total 0.2 mg/dL (0.0-1.1); Ca. Corrected For Albumin 8.7 mg/dL (8.4-10.2); Calcium * 8.6 mg/dL (7.9-10.9); Carbon Dioxide 27.9 mmol/L (24-32.6); Potassium 3.6 mmol/L (3.4-4.6); Total Protein 7.9 gm/dL (6.2-8.2)
[2016-11-24 21:48] LABS: Urine Appearance Slightly Cloudy; Urine Bilirubin Negative (NEGATIVE); Urine Blood 25 /ul (NEGATIVE); Urine Color Yellow; Urine Ketone Negative (NEGATIVE); Urine Nitrite Negative (NEGATIVE); Urine Protein Negative (NEGATIVE); Urine RBC 0-5 /hpf (0-5); Urine Specific Gravity 1.015 SP.GR. (1.005-1.010); Urine Urobilinogen Normal (NORMAL); Urine WBC 0-5 /hpf (0-5); Urine pH 7.5 pH (5.0-7.0)
[2016-11-24 21:49] LABS: Urine Amorphous Sediment Many - 3+ (NONE-FEW); Urine Bacteria None Seen
[2016-11-24] MEDS ORDERED: NAPROXEN SODIUM 550 MG TABLET PO ONE (23:19)
[2016-11-24 23:21] VITALS: BP 110/68
[2016-11-24] MEDS ORDERED: NAPROXEN SODIUM 550 MG TABLET ONE (23:21)
== END 2016-11-24 23:28 | disposition home or self-care (01) ==
LOC: ER 20:42
DX: M54.42 Lumbago with sciatica, left side (principal)

== ENCOUNTER 2016-12-08 18:48 | Emergency (ER) | payer MEDICAID ==
[2016-12-08] MEDS ORDERED: BELLADONNA ALKALOIDS/PHENOBARB 60 ML BTL PO ONE (19:00)
[2016-12-08] MEDS ORDERED: MAG HYDROX/ALUMINUM HYD/SIMETH 30 ML UDC PO ONE (19:00)
[2016-12-08] MEDS ORDERED: LIDOCAINE HCL 20 ML UDC PO ONE (19:00)
[2016-12-08] MEDS ORDERED: GLUCAGON,HUMAN RECOMBINANT 1 MG VIAL IV ONE (20:41)
[2016-12-08] MEDS ORDERED: METOCLOPRAMIDE HCL 5 MG/ML VIAL IV ONE (20:41)
[2016-12-08] MEDS ORDERED: FAMOTIDINE 10 MG/ML VIAL IV ONE ×2 (20:42→22:10)
[2016-12-08] MEDS ORDERED: NORMAL SALINE 1,000 ML IV ONE (20:46)
--- NOTE | 2016-12-08 20:48 | ERNOTE ---
Chest Pain/Cardiac HPI Date of Service: 12/08/16 Chief Complaint: Chest Pain Time Seen by Provider: 12/08/16 20:29 Source: patient, family - here with spouse Exam Limitations: no limitations Immunizations: IMMUNIZATION HX Immunizations Up to Date Yes History of Influenza Vaccine Yes Hx Pneumococcal Vaccination No Allergies/Adverse Reactions: Allergies hydrocodone bitartrate [From Vicodin] Allergy (Intermediate, Verified 11/24/16 20:52) projectile vomiting, dyspnea ketorolac tromethamine [From Toradol] Adverse Reaction (Intermediate, Verified 11/24/16 20:52) back pain, hesitancy of urine tramadol Adverse Reaction (Intermediate, Verified 11/24/16 20:52) back pain, hesitancy of urine Home Medications: HOME MEDICATIONS Venlafaxine HCl [Effexor Xr] 175 mg PO DAILY 12/13/15 [Last Taken Unknown] QUEtiapine FUMARATE [Seroquel] 100 mg PO DAILY 06/25/16 [Last Taken Unknown] Cyclobenzaprine HCl [Flexeril] 10 mg PO TID PRN #20 tab 11/21/16 [Last Taken Unknown] Ibuprofen [Motrin] 600 mg PO Q6H PRN #40 tab 11/21/16 [Last Taken Unknown] Naproxen [Naprosyn] 500 mg PO BID PRN #20 tablet 11/24/16 [Last Taken Unknown] Diclofenac Sodium/Misoprostol [Arthrotec 50 mg-200 Mcg Tab] 1 each PO BID PRN # 10 tab.ir. 12/08/16 [Last Taken Unknown] Ferrous Gluconate 240 mg PO BID #100 tablet 12/08/16 [Last Taken Unknown] Omeprazole 40 mg PO DAILY #30 capsule. 12/08/16 [Last Taken Unknown] Narrative: Patient seen in E2 for cc of epigastric pain . The patient states that the onset of pain was approximately 1600 hrs. She was driving behind her and she her pain was so severe she was having pretty erratic driving. Patient reports that the penis epigastric K weren't worse when she would deep breathe she denied any radiation of the pain was substernal lower sternum. She denied any emesis she denied any nausea. She. She denies any bowel habit changes such as a decrease in frequency of stool melena. Date (Duration): 12/08/16 Time (Timing): 16:00 Timing: getting worse, intermittent Severity/Quality: severe Location: epigastric Chest Pain Radiation: no radiation Modifying Factors - Improves: Present: nothing Modifying Factors - Worsens: Present: breathing, position Associated Symptoms: Present: palpitations, heartburn, nausea, vomiting. Absent : fever/chills, back pain Prior Chest Pain/Cardiac Workup: Reports: no prior cardiac workup Review of Systems - Review of Systems Constitutional: Present: See HPI, decreased activity level EYE: Present: no symptoms reported ENT: Present: no symptoms reported Respiratory: Present: no symptoms reported Cardiology: Present: no symptoms reported Gastrointestinal/Abdominal: Present: nausea, abdominal pain - epigastric , eating less. Absent: vomiting, diarrhea, constipation Genitourinary: Present: no symptoms reported Musculoskeletal: Present: no symptoms reported Skin: Present: no symptoms reported Neurological: Present: no symptoms reported Endocrine: Present: no symptoms reported All Other Systems: All systems neg except as marked - Narrative Narrative: Past medical history past surgical history social history medications and allergies and family history were all reviewed. - Patient's Past Medical History Patient History - Medical: Anxiety, Bipolar, Depression, GERD, Hypothyroidism, Obesity, UTI'S, Other Patient History - Cardiac/Respiratory: No pertinent hx Patient History - Cancer: No Hx of Cancer Patient History - Surgical Procedures: Appendectomy, Cholecystectomy, , Hysterectomy - 1 month ago , Tubal Ligation Patient History - Other: None LMP (Calendar): 06/12/16 - Family History Grandmother-Paternal Family History - Medical: , History Unknown Family History - Cardiac/Respiratory: History Unknown Family History - Cancer: No pertinent family hx mom Family History - Medical: No pertinent hx Family History - Cardiac/Respiratory: Myocardial Infarction Family History - Cancer: No pertinent family hx dad Family History - Medical: Diabetes Type 2, Hypothyroidism Family History - Cardiac/Respiratory: Coronary Heart Disease, Peripheral Vascular Disease Family History - Cancer: No pertinent family hx - Social History Living Situations: home Abuse History: No History of abuse Psych History: Hx of Anxiety, Hx of Depression, Hx of Bipolar Disorder, Current tx/ever been on anti-depressants or anti-anxiety meds Does anyone smoke in the home?: Yes Smoking Status: Current every day smoker Have you smoked in the past 12 months: Yes Alcohol Use: none Drug Use: none - Immunizations Immunizations Up to Date: Yes Hx Pneumococcal Vaccination: No History of Influenza Vaccine: Yes Physical Exam - Physical Exam General Appearance: Present: wd/wn, moderate distress Head Exam: Present: normal inspection, no evidence of injury Ears, Nose, Throat: Present: normal ENT inspection, normal pharynx Neck: Present: normal inspection, nontender Respiratory: Present: no respiratory distress, normal breath sounds, no accessory muscle use Cardiovascular/Chest: Present: regular rate, rhythm, no murmur, normal peripheral pulses Gastrointestinal/Abdominal: Present: normal bowel sounds, other - epigastric pain Rectal Exam: Present: nontender, normal rectal tone, other - fecal occult pending . Absent: mass, hemorrhoids Back Exam: Present: normal inspection, normal range of motion, no CVA tenderness Extremity Exam: Present: normal inspection, normal range of motion, no edema Neurological Exam: Present: alert, oriented, normal mood/affect, no motor/ sensory deficits Skin Exam: Present: normal color, warm/dry ED Progress - Results and Orders Patient's Lab Results:: I have reviewed the patient's lab results. Results and Orders: Laboratory Tests 12/08/16 12/08/16 20:50 20:50 WBC 9.9 RBC 3.66 L Hgb 9.6 L Hct 29.8 L MCV 81.4 MCH 26.2 L MCHC 32.2 RDW 15.0 H Plt Count 236 MPV 11.4 H Immature Gran % (Auto) 0.40 Immature Gran # (Auto) 0.04 H Neutrophils % 56.7 Lymphocytes % 31.7 Monocytes % 9.1 H Eosinophils % 1.8 Basophils % 0.3 Nucleated RBC % 0.0 Sodium 142 Plasma Sodium 142 Potassium 3.6 Chloride 106 Carbon Dioxide 26.7 Anion Gap 12.9 BUN 7 Creatinine 0.85 Est GFR (Non-Af Amer) 83 BUN/Creatinine Ratio 8.2 L Random Glucose 98 Calcium 8.1 C-Reactive Prot, Quant 1.6 H Laboratory Tests 12/08/16 12/08/16 20:50 22:38 Iron 15 L TIBC 246 L Transferrin % Sat 6 L Stool Occult Blood Negative - Vital Signs Patient's Vital Signs:: I have reviewed the patient's vital signs. Vital Signs: Vital Signs 12/08/16 12/08/16 18:56 19:24 Temperature 36.9 C Pulse Rate 99 95 Respiratory 19 11 L Rate Blood Pressure 150/75 140/87 O2 Sat by Pulse 99 100 Oximetry - EKG EKG read: Interp. by me EKG Comments: EKG done 12/08/2016 1852 normal sinus rhythm with mild arrhythmia right ventricular conduction delay nonspecific changes are noted when compared to previous 09/20/2015 EKG this is unchanged from previous. - X-Ray X-Ray #2 X-Ray: abdomen Interpretation: Interp. by me, Reviewed by me X-ray Comments: Retained stool is noted non-obstructive bowel gas pattern noted. Final report reviewed X-Ray #1 X-Ray: chest Interpretation: Interp. by me, Reviewed by me X-ray Comments: Final report reviewed no acute cardiopulmonary disease noted. - Progress/Reassessment Chief Complaint: Chest Pain Progress:: Improved Progress Note-Subjective: 12/08/16 23:08 Patient really had epigastric pain and workup has revealed anemia, possible gastritis and need for close followup with her pcp. Sweta in [place]. Plan - Plan Plan: Patient is improving and was noted to be anemic fecal occult blood was sent patient is asked to follow-up with her doctor regarding this anemia we are awaiting the last her blood tests and she will be stable for discharge. Departure - Departure Clinical Impression: Gastritis and duodenitis, Hiatal hernia, Iron deficiency anemia due to chronic blood loss Disposition: Home self-care Condition: Good Instructions: Gastritis, Adult, [id number], Iron Deficiency Anemia, Adult Additional Instructions: stop naproxen due to irriatation of stomach. Followup with your Doctor Sweta. Prescriptions: Diclofenac Sodium/Misoprostol [Arthrotec 50 mg-200 Mcg Tab] 1 each PO BID PRN # 10 tab.ir.dr NOGUEIRA Reason: Pain Or Cough Ferrous Gluconate 240 mg PO BID #100 tablet Omeprazole 40 mg PO DAILY #30 capsule.
--- OUTSIDE RECORDS SUMMARY | 2016-12-08 20:56 | XMS REPORT | Encounter Summary ---
:1985 Author Organization [email or web address] [place] [address] Care Team Providers Name Role Phone Unavailable Primary Care Provider Unavailable Encounter Details Date Type Department Care Team Description 03/21/2016 [facility] Billy Bobo, skid wrapper [address] [facility] [address] [place] [address] [place] [address] Social History Tobacco Use Types Packs/Day Years Used Date Current Every Day Smoker Smokeless Tobacco: Never Used Alcohol Use Drinks/Week oz/Week Comments Yes 0 Standard drinks or equivalent 0.0 social Sex Assigned at Date Recorded Not on file as of this encounter Plan of Treatment Not on fileas of this encounter Results TSH (12/13/2015) Component Value Ref Range TSH 17.179(A) 0.358 - 3.74 Specimen Performing Laboratory OTHER REFERENCE LAB T4, free (12/13/2015) Component Value Ref Range T4, Free 0.69(A) 0.76 - 1.46 Specimen Performing Laboratory OTHER REFERENCE LAB Comprehensive metabolic panel (12/13/2015) Component Value Ref Range Sodium, Blood mmol/L Potassium, Blood 3.6 mmol/L Chloride mmol/L CO2, Blood mmol/L Glucose, Blood 90 mg/dL BUN 8 mg/dL Creatinine, Serum 0.81 mg/dL Calcium 8.3 mg/dL Anion Gap mmol/L eGFR, non- eGFR, Total Protein 6.2 g/dL Total Bilirubin mg/dL Albumin, Blood g/dL Alkaline Phosphatase U/L AST 88 U/L ALT 184 U/L Iron Binding Capacity (TIBC) (12/13/2015) Component Value Ref Range Iron 18(A) 35 - 120 Iron Binding Capacity 212(A) 260 - 445 Specimen Performing Laboratory OTHER REFERENCE LAB Vitamin B12 (12/13/2015) Component Value Ref Range Vitamin B-12 677 193 - 986 Specimen Performing Laboratory OTHER REFERENCE LAB in this encounter Visit Diagnoses Not on filein this encounter
--- OUTSIDE RECORDS SUMMARY | 2016-12-08 20:56 | XMS REPORT | Clinical Summary ---
:1985 Author Organization [email or web address] [place] [address] Care Team Providers Name Role Phone Unavailable Primary Care Provider Unavailable Source Comments This disclosure is being made pursuant to the Secret program and maynot contain all information available regarding this patient.[email or web address] Allergies Active Allergy Reactions Severity Noted Date Comments Hydrocodone Shortness Of Breath High 12/15/2015 Ketorolac Tromethamine Shortness Of Breath High 12/15/2015 Tramadol Shortness Of Breath High 12/15/2015 Current Medications Be aware that medications may [...] Assigned at Date Recorded Not on file Last Filed Vital Signs Vital Sign Reading Time Taken Blood Pressure 122/68 01/01/2016 9:40 AM CDT Pulse 65 12/16/2015 1:00 AM CDT Temperature 37.2 C (99 F) 12/15/2015 9:12 PM CDT Respiratory Rate 16 12/16/2015 1:00 AM CDT Oxygen Saturation 92% 12/16/2015 1:00 AM CDT Inhaled Oxygen Concentration - - Weight 105.9 kg (233 lb 8 oz) 01/01/2016 9:40 AM CDT Height 163.8 cm (5' 4.5") 01/01/2016 9:40 AM CDT Body Mass Index 39.46 01/01/2016 9:40 AM CDT Plan of Treatment Health Maintenance Due Date Last Done Comments Pneumococcal Medium Risk 19-64 yo (1 of 1 - PPSV23) 2005 Tetanus/Pertussis (1 - Tdap) 2005 Pap Smear 2007 INFLUENZA IMMUNIZATION (#1) 2016 Results Not on filefrom Last 3 Months Insurance Payer Benefit Plan / Subscriber ID Type Phone Address Group [place] [id number] [place] [phone] SHELLEY HENRIQUEZ Personal/Family Self 1985 Home: [phone] [place] [address]
[2016-12-08 20:58] LABS: Hematocrit 29.8 % (37.0-47.0); Hemoglobin 9.6 gm/dL (12.5-16.0); Mean Cell Volume 81.4 fl (78-100); Mean Corpuscular Hemoglobin 26.2 pg (27-31); Mean Corpuscular Hgb Conc 32.2 g/dl (32-36); Mean Platelet Volume 11.4 fl (6.0-9.5); Neutrophil # 5.6 K/mm3 (1.3-6.0); Neutrophil % 56.7 % (42-75.0); Platelet Count 236 K/mm3 (150-450); Red Blood Count 3.66 M/mm3 (4.2-5.4); White Blood Count 9.9 K/mm3 (4.0-10.5)
[2016-12-08 21:05] LABS: Anion Gap 12.9 mmol/L (6.8-13.8); BUN/Creatinine Ratio 8.2 (9.0-21.6); CRP 1.6 mg/dL (0.0-0.9); Calcium * 8.1 mg/dL (7.9-10.9); Carbon Dioxide 26.7 mmol/L (24-32.6); Estimated Creat Clear 80.1; Potassium 3.6 mmol/L (3.4-4.6)
[2016-12-08] MEDS ORDERED: diphenhydrAMINE HCL 50 MG/ML VIAL IV ONE (22:08)
[2016-12-08] MEDS ORDERED: GLUCAGON,HUMAN RECOMBINANT 1 MG VIAL ONE (22:09)
[2016-12-08] MEDS ORDERED: diphenhydrAMINE HCL 50 MG/ML VIAL ONE (22:09)
[2016-12-08] MEDS ORDERED: METOCLOPRAMIDE HCL 5 MG/ML VIAL ONE (22:09)
[2016-12-08 22:54] LABS: Iron 15 mcg/dL (35-120); Transferrin Sat. (% Sat.) 6 % (15-55)
[2016-12-08 23:26] VITALS: BP 113/48
== END 2016-12-08 23:20 | disposition home or self-care (01) ==
LOC: ER 18:48
DX: K29.90 Gastroduodenitis, unspecified, without bleeding (principal); K44.9 Diaphragmatic hernia without obstruction or gangrene; D50.0 Iron deficiency anemia secondary to blood loss (chronic); F17.200 Nicotine dependence, unspecified, uncomplicated

== ENCOUNTER 2016-12-29 13:37 | Emergency (ER) | payer MEDICAID ==
[2016-12-29] MEDS ORDERED: ONDANSETRON HCL/PF 2 MG/ML VIAL IV ONE (13:42)
[2016-12-29] MEDS ORDERED: NORMAL SALINE 1,000 ML IV ONE (13:42)
[2016-12-29] MEDS ORDERED: KETOROLAC TROMETHAMINE 30 MG/ML VIAL IV ONE (13:42)
[2016-12-29] MEDS ORDERED: ONDANSETRON HCL/PF 2 MG/ML VIAL ONE (13:44)
[2016-12-29] MEDS ORDERED: KETOROLAC TROMETHAMINE 30 MG/ML VIAL ONE (13:44)
[2016-12-29 13:57] LABS: Hematocrit 35.2 % (37.0-47.0); Hemoglobin 11.3 gm/dL (12.5-16.0); Mean Cell Volume 81.1 fl (78-100); Mean Corpuscular Hgb Conc 32.1 g/dl (32-36); Mean Platelet Volume 11.3 fl (6.0-9.5); Neutrophil # 4.7 K/mm3 (1.3-6.0); Neutrophil % 53.8 % (42-75.0); Platelet Count 277 K/mm3 (150-450); Red Blood Count 4.34 M/mm3 (4.2-5.4); Red Cell Distribution Width 14.9 % (11.5-14.0); White Blood Count 8.8 K/mm3 (4.0-10.5)
--- NOTE | 2016-12-29 14:01 | ERNOTE ---
Abdominal HPI - Narrative Date of Service: 12/29/16 - General Chief Complaint: Back Pain Time Seen by Provider: 12/29/16 13:39 Source: patient Exam Limitations: no limitations - Immun/Allergies/Home Medications Immunizatons: IMMUNIZATION HX Immunizations Up to Date Yes History of Influenza Vaccine Yes Hx Pneumococcal Vaccination No Allergies/Adverse Reactions: Allergies hydrocodone bitartrate [From Vicodin] Allergy (Intermediate, Verified 12/29/16 13:40) projectile vomiting, dyspnea ketorolac tromethamine [From Toradol] Adverse Reaction (Intermediate, Verified 12/29/16 13:40) back pain, hesitancy of urine tramadol Adverse Reaction (Intermediate, Verified 12/29/16 13:40) back pain, hesitancy of urine Home Medications: HOME MEDICATIONS Venlafaxine HCl [Effexor Xr] 175 mg PO DAILY 12/13/15 [Last Taken Unknown] QUEtiapine FUMARATE [Seroquel] 100 mg PO DAILY 06/25/16 [Last Taken Unknown] Cyclobenzaprine HCl [Flexeril] 10 mg PO TID PRN #20 tab 11/21/16 [Last Taken Unknown] Ibuprofen [Motrin] 600 mg PO Q6H PRN #40 tab 11/21/16 [Last Taken Unknown] Naproxen [Naprosyn] 500 mg PO BID PRN #20 tablet 11/24/16 [Last Taken Unknown] Diclofenac Sodium/Misoprostol [Arthrotec 50 mg-200 Mcg Tab] 1 each PO BID PRN # 10 tab.ir. 12/08/16 [Last Taken Unknown] Ferrous Gluconate 240 mg PO BID #100 tablet 12/08/16 [Last Taken Unknown] Omeprazole 40 mg PO DAILY #30 capsule. 12/08/16 [Last Taken Unknown] Naproxen [Naprosyn] 500 mg PO BID PRN #60 tab 12/29/16 [Last Taken Unknown] Sulfamethoxazole/Trimethoprim [Bactrim Ds] 1 tab PO BID #28 tab 12/29/16 [Last Taken Unknown] - History of Present Illness Narrative: Pt. comes in with c/o RLQ pain and back pain for three days. Pt. states that this morning she developed nausea and vomiting. Pt. denies any fevers, SOB, CP , diarrhea, constipation, alleviating or aggravating factors despite trying rest and her ordered medications. Pt. had a BM this morning and she states that it was normal for her and yellow. Pt. has a hx of this pain but states that this is different. Review of Systems - Review of Systems Constitutional: Present: no symptoms reported. Absent: recent illness, fever, chills, weakness, fatigue, malaise EYE: Present: no symptoms reported ENT: Present: no symptoms reported Respiratory: Present: no symptoms reported. Absent: shortness of breath, cough , wheezing Cardiology: Present: no symptoms reported. Absent: chest pain, palpitations, edema Gastrointestinal/Abdominal: Present: nausea, vomiting, abdominal pain - RLQ Genitourinary: Present: no symptoms reported, pain - R flank. Absent: frequency , dysuria, hematuria, decreased urinary output Musculoskeletal: Present: no symptoms reported, back pain - R flank. Absent: muscle pain, neck pain, joint pain Skin: Present: no symptoms reported. Absent: rash, change in hair/nails Neurological: Present: no symptoms reported. Absent: headache, dizziness/light- headedness, numbness, tingling All Other Systems: All systems neg except as marked - Patient's Past Medical History Patient History - Medical: Anxiety, Bipolar, Depression, GERD, Hypothyroidism, Obesity, UTI'S Patient History - Cardiac/Respiratory: No pertinent hx Patient History - Cancer: No Hx of Cancer Patient History - Surgical Procedures: Appendectomy, Cholecystectomy, , Hysterectomy, Tubal Ligation Patient History - Other: None LMP (Calendar): 06/12/16 - Family History Grandmother-Paternal Family History - Medical: , History Unknown Family History - Cardiac/Respiratory: History Unknown Family History - Cancer: No pertinent family hx mom Family History - Medical: No pertinent hx Family History - Cardiac/Respiratory: Myocardial Infarction Family History - Cancer: No pertinent family hx dad Family History - Medical: Diabetes Type 2, Hypothyroidism Family History - Cardiac/Respiratory: Coronary Heart Disease, Peripheral Vascular Disease Family History - Cancer: No pertinent family hx - Social History Living Situations: home Abuse History: No History of abuse Psych History: Hx of Anxiety, Hx of Depression, Hx of Bipolar Disorder, Current tx/ever been on anti-depressants or anti-anxiety meds Does anyone smoke in the home?: Yes Smoking Status: Current every day smoker Alcohol Use: none Drug Use: none - Immunizations Immunizations Up to Date: Yes Hx Pneumococcal Vaccination: No History of Influenza Vaccine: Yes Physical Exam - Physical Exam General Appearance: Present: wd/wn, alert, no apparent distress Head Exam: Present: normal inspection, no evidence of injury Eye Exam: Normal inspection: bilateral, PERRL: bilateral, EOMI: bilateral Ears, Nose, Throat: Present: normal ENT inspection, normal pharynx Neck: Present: normal inspection, nontender. Absent: lymphadenopathy (R), lymphadenopathy (L) Respiratory: Present: no respiratory distress, normal breath sounds, no accessory muscle use, chest nontender, lungs clear Cardiovascular/Chest: Present: regular rate, rhythm, no murmur, normal peripheral pulses Gastrointestinal/Abdominal: Present: nondistended, soft, no organomegaly, tenderness - RLQ. Absent: distended, rebound, McBurney sign, Obturator sign, Coleman sign, hernia Back Exam: Present: normal range of motion, no vertebral tenderness, CVA tenderness (R) Extremity Exam: Present: normal inspection, non-tender, normal range of motion, no edema Neurological Exam: Present: alert, oriented, normal mood/affect, no motor/ sensory deficits, sticker on II-XII nml as tested, normal cerebellar test Skin Exam: Present: normal color, warm/dry. Absent: pallor, skin rash ED Progress - Results and Orders Patient's Lab Results:: I have reviewed the patient's lab results. - Vital Signs Patient's Vital Signs:: I have reviewed the patient's vital signs. Vital Signs: Vital Signs 12/29/16 13:40 Temperature 36.6 C Pulse Rate 84 Respiratory 20 Rate Blood Pressure 115/80 O2 Sat by Pulse 98 Oximetry - Progress/Reassessment Chief Complaint: Back Pain Progress:: Improved Departure - Departure Clinical Impression: Pyelonephritis Disposition: Home self-care Condition: Good Instructions: Pyelonephritis, Adult, [id number] Additional Instructions: Please follow up with primary provider in 2-3 days. Increase fluid intake. Prescriptions: Naproxen [Naprosyn] 500 mg PO BID PRN #60 tab PRN Reason: Pain Sulfamethoxazole/Trimethoprim [Bactrim Ds] 1 tab PO BID #28 tab
[2016-12-29 14:12] LABS: Albumin * 3.7 gm/dl (3.4-5.0); Anion Gap 15.1 mmol/L (6.8-13.8); BUN/Creatinine Ratio 11.2 (9.0-21.6); Bilirubin, Total 0.3 mg/dL (0.0-1.1); Ca. Corrected For Albumin 8.4 mg/dL (8.4-10.2); Calcium * 8.5 mg/dL (7.9-10.9); Carbon Dioxide 24.8 mmol/L (24-32.6); Potassium 3.9 mmol/L (3.4-4.6); Total Protein 7.9 gm/dL (6.2-8.2)
[2016-12-29 14:34] LABS: Urine Appearance Slightly Cloudy; Urine Color Yellow
[2016-12-29 14:35] LABS: Urine Bilirubin Negative (NEGATIVE); Urine Blood 10 /ul (NEGATIVE); Urine Ketone Negative (NEGATIVE); Urine Nitrite Positive (NEGATIVE); Urine Protein Negative (NEGATIVE); Urine Urobilinogen Normal (NORMAL); Urine WBC >50 /hpf (0-5); Urine pH 6.5 pH (5.0-7.0)
[2016-12-29 14:37] LABS: Urine RBC 0-5 /hpf (0-5)
[2016-12-29 14:38] LABS: Urine Bacteria 4+
[2016-12-29 14:40] LABS: Cocaine Ur Negative (NEGATIVE); Urine Barbiturate Negative (NEGATIVE); Urine Benzodiazepines Negative (NEGATIVE); Urine Opiates Negative (NEGATIVE); Urine PCP Negative (NEGATIVE); Urine THC Negative (NEGATIVE)
[2016-12-29] MEDS ORDERED: SULFAMETHOXAZOLE/TRIMETHOPRIM 1 TAB TABLET PO ONE (14:56)
[2016-12-29 15:02] VITALS: BP 99/69
[2016-12-29] MEDS ORDERED: SULFAMETHOXAZOLE/TRIMETHOPRIM 1 TAB TABLET ONE (15:03)
== END 2016-12-29 15:10 | disposition home or self-care (01) ==
LOC: ER 13:37
DX: N12 Tubulo-interstitial nephritis, not specified as acute or chronic (principal); F17.200 Nicotine dependence, unspecified, uncomplicated; F41.8 Other specified anxiety disorders; K21.9 Gastro-esophageal reflux disease without esophagitis
CPT/HCPCS: 36415; 80053; 80307; 81001; 82150; 83690; 85025; 87086; 96374; 96375; 99284; J2405

== ENCOUNTER 2017-01-29 16:54 | Emergency (ER) | payer MEDICAID ==
[2017-01-29 17:16] LABS: Urine Bilirubin Negative (NEGATIVE); Urine Blood Negative /ul (NEGATIVE); Urine Ketone Negative (NEGATIVE); Urine Nitrite Negative (NEGATIVE); Urine Protein Negative (NEGATIVE); Urine Specific Gravity 1.015 SP.GR. (1.005-1.010); Urine Urobilinogen Normal (NORMAL); Urine pH 7.5 pH (5.0-7.0)
[2017-01-29 17:41] LABS: Urine Appearance Clear; Urine Bacteria TRACE; Urine Color Yellow; Urine RBC None Seen /hpf (0-5); Urine WBC None Seen /hpf (0-5)
[2017-01-29 18:48] LABS: Hematocrit 33.6 % (37.0-47.0); Mean Cell Volume 82.8 fl (78-100); Mean Corpuscular Hemoglobin 27.1 pg (27-31); Mean Corpuscular Hgb Conc 32.7 g/dl (32-36); Mean Platelet Volume 11.4 fl (6.0-9.5); Neutrophil # 6.1 K/mm3 (1.3-6.0); Neutrophil % 62.8 % (42-75.0); Platelet Count 236 K/mm3 (150-450); Red Blood Count 4.06 M/mm3 (4.2-5.4); Red Cell Distribution Width 16.1 % (11.5-14.0); White Blood Count 9.7 K/mm3 (4.0-10.5)
[2017-01-29 19:01] LABS: Albumin * 3.6 gm/dl (3.4-5.0); Anion Gap 12.1 mmol/L (6.8-13.8); Bilirubin, Total 0.2 mg/dL (0.0-1.1); Ca. Corrected For Albumin 8.5 mg/dL (8.4-10.2); Calcium * 8.5 mg/dL (7.9-10.9); Carbon Dioxide 26.6 mmol/L (24-32.6); Potassium 3.7 mmol/L (3.4-4.6); Total Protein 7.8 gm/dL (6.2-8.2)
--- NOTE | 2017-01-29 19:43 | ERNOTE ---
ER Female HPI Stated Complaint: URINARY PROBLEMS, LT LEG SWELLING AND TINGLING Presenting Symptoms: other - Not urinating as much, urine more clear than usual. Time Seen by Provider: 01/29/17 19:28 Source: patient Exam Limitations: no limitations Immunizations: IMMUNIZATION HX Immunizations Up to Date Yes History of Influenza Vaccine Yes Hx Pneumococcal Vaccination No Allergies/Adverse Reactions: Allergies hydrocodone bitartrate [From Vicodin] Allergy (Intermediate, Verified 01/29/17 17:05) projectile vomiting, dyspnea ketorolac tromethamine [From Toradol] Adverse Reaction (Intermediate, Verified 01/29/17 17:05) back pain, hesitancy of urine tramadol Adverse Reaction (Intermediate, Verified 01/29/17 17:05) back pain, hesitancy of urine Home Medications: HOME MEDICATIONS Venlafaxine HCl [Effexor Xr] 175 mg PO DAILY 12/13/15 [Last Taken Unknown] QUEtiapine FUMARATE [Seroquel] 100 mg PO DAILY 06/25/16 [Last Taken Unknown] Cyclobenzaprine HCl [Flexeril] 10 mg PO TID PRN #20 tab 11/21/16 [Last Taken Unknown] Ibuprofen [Motrin] 600 mg PO Q6H PRN #40 tab 11/21/16 [Last Taken Unknown] Naproxen [Naprosyn] 500 mg PO BID PRN #20 tablet 11/24/16 [Last Taken Unknown] Diclofenac Sodium/Misoprostol [Arthrotec 50 mg-200 Mcg Tab] 1 each PO BID PRN # 10 tab.ir.dr 12/08/16 [Last Taken Unknown] Ferrous Gluconate 240 mg PO BID #100 tablet 12/08/16 [Last Taken Unknown] Omeprazole 40 mg PO DAILY #30 capsule.dr 12/08/16 [Last Taken Unknown] Naproxen [Naprosyn] 500 mg PO BID PRN #60 tab 12/29/16 [Last Taken Unknown] Sulfamethoxazole/Trimethoprim [Bactrim Ds] 1 tab PO BID #28 tab 12/29/16 [Last Taken Unknown] Methylprednisolone [Medrol Dosepak] 4 mg PO DAILY #21 tab.ds.pk 01/29/17 [Last Taken Unknown] Nabumetone 750 mg PO BID #20 tablet 01/29/17 [Last Taken Unknown] - History of Present Illness Narrative: Pt states she has had decreased urinary output for the past 3-4 days although her urine is very clear. She has noticed today that her left leg is more swollen that the right and has become somewhat tingly and ache since she has been in the ED. Timing: Present: getting worse Quality: Present: moderate Activities at Onset: Present: none Review of Systems - Review of Systems Constitutional: Absent: recent illness Respiratory: Present: shortness of breath, other - increased left side back pain with deep breath Cardiology: Present: chest pain Musculoskeletal: Present: back pain - left side lower and upper back Neurological: Present: dizziness/light-headedness, tingling - left leg and foot Endocrine: Absent: excessive sweating, flushing Hematologic/Lymphatic: Present: no symptoms reported Psych: Present: no symptoms reported - Patient's Past Medical History Patient History - Medical: Anxiety, Bipolar, Depression, GERD, Hypothyroidism, Obesity, UTI'S Patient History - Cardiac/Respiratory: No pertinent hx Patient History - Cancer: No Hx of Cancer Patient History - Surgical Procedures: Appendectomy, Cholecystectomy, , Hysterectomy, Tubal Ligation Patient History - Other: None LMP (Calendar): 06/12/16 - Family History Grandmother-Paternal Family History - Medical: , History Unknown Family History - Cardiac/Respiratory: History Unknown Family History - Cancer: No pertinent family hx mom Family History - Medical: No pertinent hx Family History - Cardiac/Respiratory: Myocardial Infarction Family History - Cancer: No pertinent family hx dad Family History - Medical: Diabetes Type 2, Hypothyroidism Family History - Cardiac/Respiratory: Coronary Heart Disease, Peripheral Vascular Disease Family History - Cancer: No pertinent family hx - Social History Living Situations: home Abuse History: No History of abuse Psych History: Hx of Anxiety, Hx of Depression, Hx of Bipolar Disorder, Current tx/ever been on anti-depressants or anti-anxiety meds Does anyone smoke in the home?: Yes Smoking Status: Current every day smoker Have you smoked in the past 12 months: Yes Alcohol Use: none Drug Use: none - Immunizations Immunizations Up to Date: Yes Hx Pneumococcal Vaccination: No History of Influenza Vaccine: Yes Physical Exam - Physical Exam General Appearance: Present: wd/wn, alert, no apparent distress Head Exam: Present: normal inspection, no evidence of injury Eye Exam: Normal inspection: bilateral Ears, Nose, Throat: Present: normal ENT inspection Neck: Present: normal inspection, nontender Respiratory: Present: no respiratory distress, normal breath sounds, no accessory muscle use, lungs clear Cardiovascular/Chest: Present: regular rate, rhythm, no murmur, normal peripheral pulses Back Exam: Present: normal inspection, normal range of motion. Absent: vertebral tenderness Extremity Exam: Present: extremity edema - left leg 1+ edema, left calf 51 cm right calf 49 cm circumference. No palpable cord or specific tenderness in the left leg or thigh Neurological Exam: Present: alert, oriented, normal mood/affect, engineering illustrator II-XII nml as tested Skin Exam: Present: normal color, warm/dry Lymphatic Exam: Present: no adenopathy ED Progress - Results and Orders Patient's Lab Results:: I have reviewed the patient's lab results. Results and Orders: Laboratory Tests 01/29/17 01/29/17 01/29/17 17:06 18:48 18:48 WBC 9.7 Hgb 11.0 L Hct 33.6 L Plt Count 236 D-Dimer Sodium 139 Potassium 3.7 Chloride 104 Carbon Dioxide 26.6 Anion Gap 12.1 BUN 12 Creatinine 0.86 Random Glucose 92 Calcium 8.5 Total Bilirubin 0.2 AST 18 ALT 31 Alkaline Phosphatase 101 Troponin I B-Natriuretic Peptide Total Protein 7.8 Albumin 3.6 Urine Color Yellow Urine Appearance Clear Urine pH 7.5 Ur Specific [place] 1.015 Urine Protein Negative Urine Glucose (UA) Negative Urine Ketones Negative Urine Blood Negative Urine Nitrate Negative Urine Bilirubin Negative Urine Urobilinogen Normal Ur Leukocyte Esterase Negative Urine RBC None seen Urine WBC None seen Ur Epithelial Cells 5-10 H Urine Bacteria Trace Urine Culture Comments No culture indicated 01/29/17 01/29/17 18:48 18:48 WBC Hgb Hct Plt Count D-Dimer 0.75 H Sodium Potassium Chloride Carbon Dioxide Anion Gap BUN Creatinine Random Glucose Calcium Total Bilirubin AST ALT Alkaline Phosphatase Troponin I Less than 0.017 B-Natriuretic Peptide 158 H Total Protein Albumin Urine Color Urine Appearance Urine pH Ur Specific [place] Urine Protein Urine Glucose (UA) Urine Ketones Urine Blood Urine Nitrate Urine Bilirubin Urine Urobilinogen Ur Leukocyte Esterase Urine RBC Urine WBC Ur Epithelial Cells Urine Bacteria Urine Culture Comments - Vital Signs Patient's Vital Signs:: I have reviewed the patient's vital signs. Vital Signs: Vital Signs 01/29/17 17:03 Temperature 36.5 C Pulse Rate 103 H Respiratory 14 Rate Blood Pressure 135/105 O2 Sat by Pulse 98 Oximetry - CT/Ultrasound CT/Ultrasound Narrative: No DVT found. - Progress/Reassessment Chief Complaint: Genitourinary Problem Progress Note-Subjective: 01/29/17 20:29 disucssed elevated d-dimer and possible DVT. Answered questions and ordered IV nubain and zofran 01/29/17 20:50 Pt having some itching after nubain, no hives or shortness of breath, benadryl 25mg IV ordered Departure Clinical Impression: Sciatic leg pain - Departure Disposition: Home Follow Up Needed Condition: Good Instructions: Sciatica, [id number] Additional Instructions: See your regular doctor within a week. Referrals: Supriya Sol NP [Primary Care Provider] - Prescriptions: Methylprednisolone [Medrol Dosepak] 4 mg PO DAILY #21 tab.ds.pk Nabumetone 750 mg PO BID #20 tablet
[2017-01-29 19:57] LABS: Troponin I Less than 0.017 ng/ml (0.00-0.10)
[2017-01-29 20:00] LABS: BNP * 158 pg/mL (5-150)
[2017-01-29] MEDS ORDERED: ONDANSETRON HCL/PF 2 MG/ML VIAL IV ONE (20:24)
[2017-01-29] MEDS ORDERED: NALBUPHINE HCL 20 MG/ML AMPUL IV ONE (20:25)
[2017-01-29] MEDS ORDERED: ONDANSETRON HCL/PF 2 MG/ML VIAL ONE (20:26)
[2017-01-29] MEDS ORDERED: NALBUPHINE HCL 20 MG/ML AMPUL ONE (20:26)
[2017-01-29] MEDS ORDERED: diphenhydrAMINE HCL 50 MG/ML VIAL IV ONE (20:49)
[2017-01-29] MEDS ORDERED: diphenhydrAMINE HCL 50 MG/ML VIAL ONE (20:54)
[2017-01-29] MEDS ORDERED: METHYLPREDNISOLONE SOD SUCC/PF 125 MG/2 ML VIAL IV ONE (22:27)
[2017-01-29] MEDS ORDERED: METHYLPREDNISOLONE SOD SUCC/PF 125 MG/2 ML VIAL ONE (23:10)
[2017-01-29 23:36] VITALS: BP 104/71
== END 2017-01-29 23:21 | disposition home or self-care (01) ==
LOC: ER 16:54
DX: M54.32 Sciatica, left side (principal); M79.605 Pain in left leg
CPT/HCPCS: 36415; 80053; 81001; 83880; 84484; 85025; 85379; 93005; 93971; 96374; 96375; 99284; J2405

== ENCOUNTER 2017-04-05 10:18 | Emergency (ER) | payer MEDICAID ==
[2017-04-05] MEDS ORDERED: ONDANSETRON HCL/PF 2 MG/ML VIAL IV ONE (10:28)
[2017-04-05] MEDS ORDERED: ONDANSETRON HCL/PF 2 MG/ML VIAL ONE (10:33)
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
[2017-04-05 11:43] LABS: Urine Appearance Cloudy; Urine Bilirubin Negative (NEGATIVE); Urine Blood 150 /ul (NEGATIVE); Urine Color Yellow; Urine Ketone Negative (NEGATIVE); Urine Nitrite Negative (NEGATIVE); Urine Protein 100 mg/dL (NEGATIVE); Urine Urobilinogen 4 EU/dl (NORMAL); Urine pH 7.5 pH (5.0-7.0)
[2017-04-05 11:44] LABS: Urine Bacteria 4+; Urine RBC 0-5 /hpf (0-5)
[2017-04-05 11:50] LABS: Cocaine Ur Negative (NEGATIVE); Urine Barbiturate Negative (NEGATIVE); Urine Benzodiazepines Negative (NEGATIVE); Urine Opiates Negative (NEGATIVE); Urine PCP Negative (NEGATIVE); Urine THC Negative (NEGATIVE)
[2017-04-05 11:53] VITALS: BP 124/72
== END 2017-04-05 12:00 | disposition home or self-care (01) ==
LOC: ER 10:18
DX: S06.0X0A Concussion without loss of consciousness, initial encounter (principal); N39.0 Urinary tract infection, site not specified; Z87.440 Personal history of urinary (tract) infections; F17.200 Nicotine dependence, unspecified, uncomplicated; W17.89XA Other fall from one level to another, initial encounter
CPT/HCPCS: 70450; 72125; 80307; 81001; 87077; 87086; 87186; 96374; 99284; J2405

== ENCOUNTER 2017-04-05 18:06 | Emergency (ER) | payer MEDICAID ==
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
[2017-04-05 18:35] LABS: Hematocrit 35.9 % (37.0-47.0); Hemoglobin 12.3 gm/dL (12.5-16.0); Mean Cell Volume 87.3 fl (78-100); Mean Corpuscular Hemoglobin 29.9 pg (27-31); Mean Corpuscular Hgb Conc 34.3 g/dl (32-36); Neutrophil # 3.3 K/mm3 (1.3-6.0); Neutrophil % 52.1 % (42-75.0); Platelet Count 227 K/mm3 (150-450); Red Blood Count 4.11 M/mm3 (4.2-5.4); Red Cell Distribution Width 15.3 % (11.5-14.0); White Blood Count 6.4 K/mm3 (4.0-10.5)
[2017-04-05 18:48] LABS: Albumin * 3.5 gm/dl (3.4-5.0); Anion Gap 12.9 mmol/L (6.8-13.8); BUN/Creatinine Ratio 9.1 (9.0-21.6); Bilirubin, Total 0.3 mg/dL (0.0-1.1); Ca. Corrected For Albumin 8.3 mg/dL (8.4-10.2); Calcium * 8.2 mg/dL (7.9-10.9); Carbon Dioxide 25.2 mmol/L (24-32.6); Potassium 3.1 mmol/L (3.4-4.6); Total Protein 7.3 gm/dL (6.2-8.2)
[2017-04-05] MEDS ORDERED: ACETAMINOPHEN 500 MG TABLET PO ONE (19:01)
[2017-04-05 19:57] VITALS: BP 126/76
== END 2017-04-05 20:20 | disposition short-term general hospital (02) ==
LOC: ER 18:06
DX: S06.0X0A Concussion without loss of consciousness, initial encounter (principal); S16.1XXA Strain of muscle, fascia and tendon at neck level, initial encounter; G83.9 Paralytic syndrome, unspecified; W17.89XA Other fall from one level to another, initial encounter; E03.9 Hypothyroidism, unspecified; F31.9 Bipolar disorder, unspecified; Z87.440 Personal history of urinary (tract) infections; F41.9 Anxiety disorder, unspecified

== ENCOUNTER 2017-06-23 22:36 | Emergency (ER) | payer MEDICAID ==
--- NOTE | 2017-06-23 23:13 | ERNOTE ---
Medical Problem HPI - General Chief Complaint: General Assessment Time Seen by Provider: 06/23/17 23:00 Source: patient Exam Limitations: clinical condition, intoxication - Immun/Allergies/Home Medications Immunizations: IMMUNIZATION HX Immunizations Up to Date Yes History of Influenza Vaccine No Hx Pneumococcal Vaccination No Allergies/Adverse Reactions: Allergies hydrocodone bitartrate [From Vicodin] Allergy (Intermediate, Verified 06/23/17 23:02) projectile vomiting, dyspnea ketorolac tromethamine [From Toradol] Adverse Reaction (Intermediate, Verified 06/23/17 23:02) back pain, hesitancy of urine tramadol Adverse Reaction (Intermediate, Verified 06/23/17 23:02) back pain, hesitancy of urine Home Medications: HOME MEDICATIONS Levothyroxine Sodium [Synthroid] 300 mcg PO DAILY 04/05/17 [Last Taken Unknown] Nitrofurantoin/Nitrofuran Mac [Macrobid] 100 mg PO Q12H #14 cap 04/05/17 [Last Taken Unknown] Ondansetron [Zofran Odt] 4 mg PO Q4H PRN #10 tab 04/05/17 [Last Taken Unknown] QUEtiapine FUMARATE [Seroquel] 50 mg PO DAILY 04/05/17 [Last Taken Unknown] Venlafaxine HCl [Effexor Xr] 150 mg PO DAILY 04/05/17 [Last Taken Unknown] - History of Present History Narrative: Pt states she was depressed and so she smoked methamphetamine tonight. She now feels like she cant swallow and having trouble breathing. Timing: constant Severity: moderate Modifying Factors - (Improves): Present: other - Pt states that drinking water helps her "throat stay open" Review of Systems - Review of Systems Constitutional: Absent: recent illness EYE: Present: no symptoms reported ENT: Present: throat swelling - feels like it Respiratory: Present: shortness of breath Cardiology: Present: no symptoms reported Gastrointestinal/Abdominal: Absent: nausea, vomiting Genitourinary: Present: no symptoms reported Musculoskeletal: Present: no symptoms reported Skin: Present: no symptoms reported Neurological: Present: tremors Endocrine: Absent: excessive sweating, flushing Hematologic/Lymphatic: Present: no symptoms reported Psych: Present: anxiety, depressed - Patient's Past Medical History Patient History - Medical: Anxiety, Bipolar, Depression, GERD, Hypothyroidism, Obesity, UTI'S Patient History - Cardiac/Respiratory: No pertinent hx Patient History - Cancer: No Hx of Cancer Patient History - Surgical Procedures: Appendectomy, Cholecystectomy, , Hysterectomy, Tubal Ligation Patient History - Other: None - Family History Grandmother-Paternal Family History - Medical: , History Unknown Family History - Cardiac/Respiratory: History Unknown Family History - Cancer: No pertinent family hx mom Family History - Medical: No pertinent hx Family History - Cardiac/Respiratory: Myocardial Infarction Family History - Cancer: No pertinent family hx dad Family History - Medical: Diabetes Type 2, Hypothyroidism Family History - Cardiac/Respiratory: Coronary Heart Disease, Peripheral Vascular Disease Family History - Cancer: No pertinent family hx - Social History Abuse History: No History of abuse Psych History: Hx of Anxiety, Hx of Depression, Hx of Bipolar Disorder, Current tx/ever been on anti-depressants or anti-anxiety meds Smoking Status: Current every day smoker Drug Use: meth - Immunizations Immunizations Up to Date: Yes Hx Pneumococcal Vaccination: No History of Influenza Vaccine: No Physical Exam - Physical Exam General Appearance: Present: wd/wn, anxious - when awakened, sleeping/easy to arouse Head Exam: Present: normal inspection, no evidence of injury Eye Exam: Normal inspection: bilateral Ears, Nose, Throat: Present: normal ENT inspection Neck: Present: normal inspection, nontender Respiratory: Present: no respiratory distress, normal breath sounds, no accessory muscle use, lungs clear Cardiovascular/Chest: Present: regular rate, rhythm, no murmur, normal peripheral pulses Gastrointestinal/Abdominal: Present: normal bowel sounds, nontender, nondistended, soft Extremity Exam: Present: normal inspection, no edema Neurological Exam: Present: oriented Skin Exam: Present: normal color, warm/dry Lymphatic Exam: Present: no adenopathy ED Progress - Vital Signs Vital Signs: Vital Signs 06/23/17 22:40 Temperature 36.2 C L Pulse Rate 101 H Respiratory 18 Rate Blood Pressure 127/88 O2 Sat by Pulse 98 Oximetry - Progress/Reassessment Chief Complaint: General Assessment Departure Clinical Impression: Drug abuse, amphetamine type - Departure Disposition: Home self-care Condition: Good Instructions: Stimulant Use Disorder-Methamphetamines Additional Instructions: You need to seek treatment for drug abuse. Sleep tonight and drink water or gatorade as needed to stay hydrated.
[2017-06-24] MEDS: NORMAL SALINE 1,000 ML IV PRN (01:05)
[2017-06-24 01:13] LABS: Urine Bilirubin Negative (NEGATIVE); Urine Blood 25 /ul (NEGATIVE); Urine Ketone Negative (NEGATIVE); Urine Nitrite Negative (NEGATIVE); Urine Protein Negative (NEGATIVE); Urine Specific Gravity <=1.005 SP.GR. (1.005-1.010); Urine Urobilinogen Normal (NORMAL)
[2017-06-24 01:23] LABS: Urine Appearance Clear; Urine Bacteria TRACE; Urine Color Pale Yellow; Urine RBC None Seen /hpf (0-5); Urine WBC None Seen /hpf (0-5)
[2017-06-24 01:24] LABS: Urine Amorphous Sediment TRACE (NONE-FEW)
[2017-06-24 01:25] LABS: Cocaine Ur Negative (NEGATIVE); Urine Barbiturate Negative (NEGATIVE); Urine Benzodiazepines Negative (NEGATIVE); Urine Opiates Negative (NEGATIVE); Urine PCP Negative (NEGATIVE); Urine THC Negative (NEGATIVE)
[2017-06-24 02:18] VITALS: BP 110/68
== END 2017-06-24 02:08 | disposition home or self-care (01) ==
LOC: ER 22:36
DX: F15.10 Other stimulant abuse, uncomplicated; Z87.440 Personal history of urinary (tract) infections; F17.200 Nicotine dependence, unspecified, uncomplicated